=== PATIENT | male | born 1990 | race Caucasian/White ===

== ENCOUNTER 2018-02-19 09:04 | Inpatient (IN) | payer OTHER ==
[2018-02-19] MEDS ORDERED: SODIUM CHLORIDE 0.9% 1,000 ML IV ONE (09:09)
--- NOTE | 2018-02-19 09:18 | ED ---
General Adult HPI - General Stated complaint: altered Time Seen by Provider: 02/19/18 09:04 Source: RN notes reviewed - History of Present Illness Initial comments: This is a 27-year-old male who presents emergency Department with a past medical history of heroin use. Patient's girlfriend states he was acting bizarre and not making any sense at home so EMS was called. According to the girlfriend the patient last used heroin yesterday morning girlfriend states she does not believe he has done any other drugs that it was a bottle of Mucinex and Tylenol neck the patient when she got there and she states that the Tylenol bottle was nearly full but she did not check the Mucinex. Patient is unable to give any history since he's just babbling and not making any sense and is not following basic commands. Patient is alert and moving all 4 extremities but he is not oriented at all. Patient is combative. - Related Data Home Medications Medication Instructions Recorded Confirmed No Known Home Medications 02/19/18 02/19/18 Allergies Allergy/AdvReac Type Severity Reaction Status Date / Time No Known Allergies Allergy Verified 02/19/18 09:36 Review of Systems ROS Statement: Those systems with pertinent positive or pertinent negative responses have been documented in the HPI. ROS Other: All systems not noted in ROS Statement are negative. General Exam - General Exam Comments Initial Comments: GENERAL: Patient is well-developed and well-nourished. Patient is nontoxic and well- hydrated and is in mild distress. ENT: Neck is soft and supple. No significant lymphadenopathy is noted. Oropharynx is clear. Moist mucous membranes. Neck has full range of motion without eliciting any pain. EYES: The sclera were anicteric and conjunctiva were pink and moist. Extraocular movements were intact and pupils were equal round and reactive to light. Pupils were dilated to about 6 mm. Eyelids were unremarkable. PULMONARY: Unlabored respirations. Good breath sounds bilaterally. No audible rales rhonchi or wheezing was noted. CARDIOVASCULAR: There is a regular rate and rhythm without any murmurs gallops or rubs. ABDOMEN: Soft and nontender with normal bowel sounds. No palpable organomegaly was noted. There is no palpable pulsatile mass. SKIN: Skin is clear with no lesions or rashes and otherwise unremarkable. NEUROLOGIC: Patient is awake but not oriented at all. Cranial nerves II through XII are grossly intact. Patient is moving all 4 extremities fully sensation cannot be tested. Unable to assess speech secondary to patient just babbling and not making any sense not even always using words just making sounds. MUSCULOSKELETAL: Normal extremities with adequate strength and full range of motion. No lower extremity swelling or edema. No calf tenderness. LYMPHATICS: No significant lymphadenopathy is noted PSYCHIATRIC: Unable to assess Course Vital Signs 02/19/18 02/19/18 02/19/18 11:15 12:09 12:13 Pulse Rate 108 H 113 H 125 H Respiratory 24 26 H 24 Rate Blood Pressure 130/90 127/86 O2 Sat by Pulse 98 99 Oximetry 02/19/18 02/19/18 02/19/18 12:25 12:45 13:22 Pulse Rate 120 H 108 H 116 H Respiratory 24 24 24 Rate Blood Pressure 120/59 115/76 O2 Sat by Pulse 100 99 99 Oximetry Procedures - Procedural Sedation Procedural Sedation Start Time: 12:00 Procedural Sedation Stop Time: 12:25 Indications: diagnostic imaging procedure ASA Class: I Preparation: cardiac exercise physiologist applied, pulse oximeter, supplemental O2 applied IV Etomidate Dose (mgs): 15 Patient Tolerated Procedure: well - Restraint - Face to Face Restraint Occurrence 1 Patient's Immediate Situation: Endangers self safety, Endangers others' safety, Endangers staff safety Patient's Reaction to the Intervention: Uncooperative, Belligerent, Bizarre, Combative, Resistive to care Patient's Medical & Behavioral Condition: Awake, Agitated Need to Continue or Terminate Restraint or Seclusion: Continue Face to Face Eval of Restraint Date: 02/19/18 Face to Face Eval of Restraint Time: 09:30 Medical Decision Making - Medical Decision Making Conscious sedation needed to be used 2 be able to get a CAT scan on the patient. Etomidate was used. The patient tolerated the procedure well respiratory syndrome as well as nursing. Hours after the patient had been here the girlfriend went home and found a bottle of empty Flexeril. Unknown how many unknown dose and unknown when it was filled I spoke with Dr. Wilson he agreed to admit the patient admitted the patient I sent the patient to the ICU I consulted Dr. Johnson EKG showed a sinus tachycardia at 103 bpm NM interval is 130 QRS is 88 QT interval is 334 QTC is 437. Patient's EKG shows no ST segment elevation or depression or T wave abnormalities are noted. With that sharp at 14 - Lab Data Result diagrams: 02/20/18 04:37 02/20/18 04:37 Lab Results 02/19/18 02/19/18 02/19/18 Range/Units 09:22 09:22 09:22 WBC 6.5 (3.8-10.6) k/uL RBC 4.80 (4.30-5.90) m/uL Hgb 15.4 (13.0-17.5) gm/dL Hct 45.2 (39.0-53.0) % MCV 94.2 (80.0-100.0) fL MCH 32.1 (25.0-35.0) pg MCHC 34.1 (31.0-37.0) g/dL RDW 13.1 (11.5-15.5) % Plt Count 243 (150-450) k/uL Neutrophils % 50 % Lymphocytes % 39 % Monocytes % 6 % Eosinophils % 1 % Basophils % 1 % Neutrophils # 3.2 (1.3-7.7) k/uL Lymphocytes # 2.5 (1.0-4.8) k/uL Monocytes # 0.4 (0-1.0) k/uL Eosinophils # 0.1 (0-0.7) k/uL Basophils # 0.0 (0-0.2) k/uL PT (9.0-12.0) sec INR (<1.2) APTT (22.0-30.0) sec Sodium 144 (137-145) mmol/L Potassium 5.0 (3.5-5.1) mmol/L Chloride 110 H (98-107) mmol/L Carbon Dioxide 24 (22-30) mmol/L Anion Gap 10 mmol/L BUN 12 (9-20) mg/dL Creatinine 0.69 (0.66-1.25) mg/dL Est GFR (CKD-EPI)AfAm >90 (>60 ml/min/1.73 sqM) Est GFR (CKD-EPI)NonAf >90 (>60 ml/min/1.73 sqM) Glucose 101 H (74-99) mg/dL Calcium 10.2 (8.4-10.2) mg/dL Total Bilirubin 0.5 (0.2-1.3) mg/dL AST 122 H (17-59) U/L ALT 525 H (21-72) U/L Alkaline Phosphatase 166 H (38-126) U/L Total Creatine Kinase 58 (55-170) U/L CK-MB (CK-2) 0.6 (0.0-2.4) ng/mL CK-MB (CK-2) Rel Index 1.0 Troponin I <0.012 (0.000-0.034) ng/mL Total Protein 7.2 (6.3-8.2) g/dL Albumin 4.0 (3.5-5.0) g/dL Urine Color Urine Appearance (Clear) Urine pH (5.0-8.0) Ur Specific [place] (1.001-1.035) Urine Protein (Negative) Urine Glucose (UA) (Negative) Urine Ketones (Negative) Urine Blood (Negative) Urine Nitrite (Negative) Urine Bilirubin (Negative) Urine Urobilinogen (<2.0) mg/dL Ur Leukocyte Esterase (Negative) Urine RBC (0-5) /hpf Urine WBC (0-5) /hpf Ur Squamous Epith Cells (0-4) /hpf Urine Opiates Screen (NotDetected) Ur Oxycodone Screen (NotDetected) Urine Methadone Screen (NotDetected) Ur Propoxyphene Screen (NotDetected) Ur Barbiturates Screen (NotDetected) U Tricyclic Antidepress (NotDetected) Ur Phencyclidine Scrn (NotDetected) Ur Amphetamines Screen (NotDetected) U Methamphetamines Scrn (NotDetected) U Benzodiazepines Scrn (NotDetected) Urine Cocaine Screen (NotDetected) U Marijuana (THC) Screen (NotDetected) 02/19/18 02/19/18 Range/Units 09:22 10:00 WBC (3.8-10.6) k/uL RBC (4.30-5.90) m/uL Hgb (13.0-17.5) gm/dL Hct (39.0-53.0) % MCV (80.0-100.0) fL MCH (25.0-35.0) pg MCHC (31.0-37.0) g/dL RDW (11.5-15.5) % Plt Count (150-450) k/uL Neutrophils % % Lymphocytes % % Monocytes % % Eosinophils % % Basophils % % Neutrophils # (1.3-7.7) k/uL Lymphocytes # (1.0-4.8) k/uL Monocytes # (0-1.0) k/uL Eosinophils # (0-0.7) k/uL Basophils # (0-0.2) k/uL PT 9.7 (9.0-12.0) sec INR 1.0 (<1.2) APTT 26.5 (22.0-30.0) sec Sodium (137-145) mmol/L Potassium (3.5-5.1) mmol/L Chloride (98-107) mmol/L Carbon Dioxide (22-30) mmol/L Anion Gap mmol/L BUN (9-20) mg/dL Creatinine (0.66-1.25) mg/dL Est GFR (CKD-EPI)AfAm (>60 ml/min/1.73 sqM) Est GFR (CKD-EPI)NonAf (>60 ml/min/1.73 sqM) Glucose (74-99) mg/dL Calcium (8.4-10.2) mg/dL Total Bilirubin (0.2-1.3) mg/dL AST (17-59) U/L ALT (21-72) U/L Alkaline Phosphatase (38-126) U/L Total Creatine Kinase (55-170) U/L CK-MB (CK-2) (0.0-2.4) ng/mL CK-MB (CK-2) Rel Index Troponin I (0.000-0.034) ng/mL Total Protein (6.3-8.2) g/dL Albumin (3.5-5.0) g/dL Urine Color Light Yellow Urine Appearance Clear (Clear) Urine pH 7.0 (5.0-8.0) Ur Specific [place] 1.004 (1.001-1.035) Urine Protein Negative (Negative) Urine Glucose (UA) Negative (Negative) Urine Ketones Negative (Negative) Urine Blood Small H (Negative) Urine Nitrite Negative (Negative) Urine Bilirubin Negative (Negative) Urine Urobilinogen <2.0 (<2.0) mg/dL Ur Leukocyte Esterase Negative (Negative) Urine RBC 3 (0-5) /hpf Urine WBC 1 (0-5) /hpf Ur Squamous Epith Cells <1 (0-4) /hpf Urine Opiates Screen Not Detected (NotDetected) Ur Oxycodone Screen Not Detected (NotDetected) Urine Methadone Screen Not Detected (NotDetected) Ur Propoxyphene Screen Not Detected (NotDetected) Ur Barbiturates Screen Not Detected (NotDetected) U Tricyclic Antidepress Not Detected (NotDetected) Ur Phencyclidine Scrn Not Detected (NotDetected) Ur Amphetamines Screen Not Detected (NotDetected) U Methamphetamines Scrn Not Detected (NotDetected) U Benzodiazepines Scrn Detected H (NotDetected) Urine Cocaine Screen Not Detected (NotDetected) U Marijuana (THC) Screen Detected H (NotDetected) Disposition Clinical Impression: Altered mental status, Drug overdose Disposition: ADMITTED IP TO THIS HOSP
[2018-02-19] MEDS ORDERED: LORazepam 2 MG/ML INJ IV STA ×2 (09:20→13:09)
[2018-02-19 09:52] LABS: ALT 525 U/L (21-72); AST 122 U/L (17-59); Alkaline Phosphatase 166 U/L (38-126); Anion Gap 10 mmol/L; Blood Urea Nitrogen 12 mg/dL (9-20); Calcium 10.2 mg/dL (8.4-10.2); Carbon Dioxide 24 mmol/L (22-30); Chloride 110 mmol/L (98-107); Glucose 101 mg/dL (74-99); Sodium 144 mmol/L (137-145); Total Bilirubin 0.5 mg/dL (0.2-1.3); Total Protein 7.2 g/dL (6.3-8.2)
[2018-02-19 09:53] LABS: Basophils % (A) 1 %; Eosinophils # (A) 0.1 k/uL (0-0.7); Eosinophils % (A) 1 %; HCT 45.2 % (39.0-53.0); HGB 15.4 gm/dL (13.0-17.5); Lymphocytes # (A) 2.5 k/uL (1.0-4.8); Lymphocytes % (A) 39 %; MCH 32.1 pg (25.0-35.0); MCHC 34.1 g/dL (31.0-37.0); MCV 94.2 fL (80.0-100.0); Mean Platelet Volume 7.3; Monocytes # (A) 0.4 k/uL (0-1.0); Monocytes % (A) 6 %; Neutrophils # (A) 3.2 k/uL (1.3-7.7); Neutrophils % (A) 50 %; Platelet Count 243 k/uL (150-450); RDW 13.1 % (11.5-15.5); WBC 6.5 k/uL (3.8-10.6)
[2018-02-19 09:57] LABS: Partial Thromboplastin Time 26.5 sec (22.0-30.0); Prothrombin Time 9.7 sec (9.0-12.0)
[2018-02-19 10:15] LABS: Creatine Kinase 58 U/L (55-170)
[2018-02-19 10:26] LABS: Appearance,Urine Clear (Clear); Bilirubin,Urine Negative (Negative); Blood,Urine Small (Negative); Color,Urine Light Yellow; Glucose,Urine (UA) Negative (Negative); Ketones,Urine Negative (Negative); Leukocyte Esterase,Urine Negative (Negative); Nitrite,Urine Negative (Negative); Protein,Urine Negative (Negative); RBC,Urine 3 /hpf (0-5); Specific Gravity,Urine 1.004 (1.001-1.035); Squamous Epithelial Cell,Urine <1 /hpf (0-4); Urobilinogen,Urine <2.0 mg/dL (<2.0); WBC,Urine 1 /hpf (0-5)
[2018-02-19 10:29] LABS: Creatine Kinase MB 0.6 ng/mL (0.0-2.4); Troponin I <0.012 ng/mL (0.000-0.034)
[2018-02-19 10:41] LABS: Amphetamine Screen,Urine Not Detected (NotDetected); Barbiturate Screen,Urine Not Detected (NotDetected); Benzodiazepines Screen,Urine Detected (NotDetected); Cocaine Screen,Urine Not Detected (NotDetected); Methadone Screen, Urine Not Detected (NotDetected); Opiate Screen,Urine Not Detected (NotDetected); Oxycodone Screen, Urine Not Detected (NotDetected); Phencyclidine Screen,Urine Not Detected (NotDetected); Tricyclic Antidepressant,Urine Not Detected (NotDetected); Urn Cannabinoid Scrn Detected (NotDetected)
[2018-02-19] MEDS: ETOMIDATE 2 MG/ML 10 ML VIAL IVP STA ×2 (12:12→12:13)
--- NOTE | 2018-02-19 12:35 | CT ---
EXAMINATION TYPE: CT brain wo con DATE OF EXAM: 02/19/2018 COMPARISON: None HISTORY: Altered mental status CT DLP: 1185.[address] of the brain was performed. The ventricles, basal cisterns and sulci overlying the cerebral convexities demonstrate a normal appe arance. There is no evidence for intracranial hemorrhage or sulcal effacement. No mass effects are seen. Osseous calvarium is intact. Mucous retention cyst seen of the maxillary sinuses. If symptoms persist consider MRI as clinically warranted. IMPRESSION: 1. No acute intracranial process is seen at this time.
--- NOTE | 2018-02-19 12:47 | XR ---
EXAMINATION TYPE: XR chest 1V portable DATE OF EXAM: 02/19/2018 COMPARISON: NONE HISTORY: Chest pain TECHNIQUE: Single frontal view of the chest is obtained. FINDINGS: There is no focal air space opacity, pleural effusion, or pneumothorax seen. The cardiac silhouette size is within normal limits. The osseous structures are intact. IMPRESSION: 1. No acute process.
[2018-02-19] MEDS ORDERED: NALOXONE 0.4 MG/ML 1 ML VIAL IV PRN (13:14)
[2018-02-19] MEDS ORDERED: LORazepam 2 MG/ML INJ IV PRN ×3 (13:16→19:23)
[2018-02-19 13:43] LABS: Acetaminophen <10.0 ug/mL; Alcohol <10 mg/dL; Magnesium 1.9 mg/dL (1.6-2.3); Salicylate <1.0 mg/dL
[2018-02-19 14:37] LABS: Glucose,Whole Blood 93 mg/dL (75-99)
--- NOTE | 2018-02-19 16:40 | P.CNPUL ---
History of Present Illness Consult date: 02/19/18 Reason for consult: other Chief complaint: Drug overdose History of present illness: Pulmonary/critical care consult dated 02/19/2018 This is a 27-year-old male who presented to the emergency department with a history of drug use. Apparently according to his girlfriend, he was acting bizarre and not making any sense at home. EMS was called and he was brought into the emergency department. The patient was very disoriented and confused in the emergency department and very agitated. Apparently, according to the girlfriend, the patient last used heroin yesterday. The drug screen was negative for opiates. There was apparently a bottle of Mucinex and Tylenol as well as a bottle of Flexeril next to the patient. It's not clear if he took any of these medications and how much was taken. The drug screen was positive for benzodiazepines and also positive for THC. A CAT scan of the brain was negative and a chest x-ray was normal. The patient has Ativan ordered 1 mg every 6 hours. I increased the Ativan to 1 mg every 2 hours IV and Haldol 4-8 mg IV every 2 hours. The patient continues to be very combative. He apparently is not on any home medications on a regular basis. He apparently also has no ALLERGIES. Apparently also, no history of any significant medical problems. Again, the history is very sketchy. Review of Systems ROS unobtainable: due to mental status (Patient can give no additional history at this time.) Past Medical History Past Medical History: Unable to Obtain History of Any Multi-Drug Resistant Organisms: None Reported Past Surgical History: Unable to Obtain Past Psychological History: Unable to Obtain Smoking Status: Unknown if ever smoked Past Drug Use History: Heroin, IV Drug Use Medications and Allergies Home Medications Medication Instructions Recorded Confirmed Type No Known Home Medications 02/19/18 02/19/18 History Allergies Allergy/AdvReac Type Severity Reaction Status Date / Time No Known Allergies Allergy Verified 02/19/18 09:36 Physical Exam Osteopathic Statement: *. No significant issues noted on an osteopathic structural exam other than those noted in the History and Physical/Consult. Vitals: Vital Signs Temp Pulse Pulse Resp BP Pulse Ox 02/19/18 16:00 112 H 118 H 32 H 126/69 97 02/19/18 15:50 19 126/69 97 02/19/18 15:40 100 13 126/69 97 02/19/18 15:30 105 H 12 126/69 98 02/19/18 15:20 124 H 24 126/69 96 02/19/18 15:10 115 H 20 126/69 97 02/19/18 15:00 120 H 36 H 126/69 94 L 02/19/18 14:50 120 H 23 97 02/19/18 14:40 121 H 20 97 02/19/18 14:31 98.0 F 124 H 31 H 97 02/19/18 13:22 116 H 24 115/76 99 02/19/18 12:45 108 H 24 120/59 99 02/19/18 12:25 120 H 24 100 02/19/18 12:13 125 H 24 99 02/19/18 12:09 113 H 26 H 127/86 02/19/18 11:15 108 H 24 130/90 98 Intake and Output 02/19/18 02/19/18 02/19/18 06:59 14:59 22:59 Intake Total 225 Output Total 600 Balance -375 Intake: Intake, IV Titration 225 Amount Sodium Chloride 0.9% 1, 225 000 ml @ 999 mls/hr IV . Q1H1M ONE Rx#:[id number] Output: Urine 600 Other: Voiding Method Indwelling Catheter Weight 72.575 kg No acute distress, confused and agitated, with significant neuromuscular hyperactivity. HEENT examination is grossly unremarkable. Mucous membranes are moist. No oral lesions. Neck supple. Full range of motion. No adenopathy thyromegaly or neck vein distention. Cardiovascular examination reveals regular rhythm rate. S1-S2 normal. No S3 or S4. No discernible murmur noted. Heart rate is 100. Lungs reveal clear breath sounds. Breath sounds are equal bilaterally. No adventitious lung sounds including wheezes rhonchi or crackles. Abdomen soft and bowel sounds are heard. No masses or tenderness. Extremities are intact. No cyanosis clubbing or edema. Skin is without rash or lesion. Neurologic examination cannot be adequately assessed although he does move all 4 extremities. Results - Laboratory Findings CBC and BMP: 02/19/18 09:22 02/19/18 09:22 PT/INR, D-dimer PT 9.7 sec (9.0-12.0) 02/19/18 09:22 INR 1.0 (<1.2) 02/19/18 09:22 Abnormal lab findings: Abnormal Labs 02/19/18 02/19/18 09:22 10:00 Chloride 110 H Glucose 101 H AST 122 H ALT 525 H Alkaline Phosphatase 166 H Urine Blood Small H U Benzodiazepines Scrn Detected H U Marijuana (THC) Screen Detected H - Diagnostic Findings Chest x-ray: report reviewed, image reviewed (Chest x-ray, labs and medications are reviewed.) Assessment and Plan Assessment: Assessment Suspected overdose, although what the patient took is unclear. Apparently it may include Mucinex and/or Flexeril. Drug screen positive for benzodiazepines and marijuana History of heroin use. Normal chest x-ray and brain CT Plan: Plan dated 02/19/2018 The patient's Ativan will be increased to 1 mg IV every 2 hours when necessary and Haldol will be added. 4-8 mg IV every 2 hours. The patient is not receiving any supplemental oxygen. The IV was saline at 125 mL an hour. Labs x -rays and medications are all reviewed. CBC is entirely normal. PT INR PTT are normal. Sodium 144, potassium 5 chloride is 110 CO2 24 anion gap normal, BUN 12 and creatinine 0.69. AST is elevated at 122 and ALTs elevated at 525. Alkaline phosphatase is 166. Urine is essentially negative. In addition to the Ativan and Haldol, the patient has Narcan ordered. We will continue to follow and provide additional input weren't needed. Prognosis is guarded. Time with Patient: Greater than 30
[2018-02-19] MEDS: HALOPERIDOL LACTATE 5 MG/ML 1 ML VIAL IVP PRN ×4 (17:25→23:53)
[2018-02-19] MEDS ORDERED: HALOPERIDOL LACTATE 5 MG/ML 1 ML VIAL IM PRN (19:22)
[2018-02-19] MEDS ORDERED: HALOPERIDOL LACTATE 5 MG/ML 1 ML VIAL IVP PRN (21:15)
[2018-02-19] MEDS: LORazepam 2 MG/ML INJ IV PRN ×3 (21:23→23:29)
[2018-02-19] MEDS: HEPARIN SODIUM,PORCINE 5,000 UNIT/ML 1 ML VIAL SQ SCH (21:53)
--- NOTE | 2018-02-19 22:32 | HP ---
HISTORY AND PHYSICAL DATE OF SERVICE: 02/19/2018 CHIEF COMPLAINT: Change in mental status. HISTORY OF PRESENT ILLNESS: This 27-year-old gentleman with a past medical history of multiple medical problems, including history of substance abuse apparently, was taken to [facility] from home because somebody called EMS. According to the girlfriend, the patient last used heroin yesterday morning and is not on any drugs, according to her; and there was a bottle of Mucinex and Tylenol near the patient and the patient was found to be barely responsive. Patient was taken to [facility] and admitted for further evaluation and treatment. The patient was initially alert, moving all 4 limbs, but the patient needs to be sedated and patient's safety at this time. The patient is being closely in ICU at this time. Dr. Cameron has seen the patient. AST and ALT were very elevated, indicating hepatitis, and THC and benzodiazepines were positive. Skin alcohol was negative. There is no history of any trauma. No history of any fever, rigor, chills. A detailed history could not be taken from the patient because the patient is sedated at this time. Most of the history was taken from my discussion with staff as well as review of the chart and discussion with the ER physician. PAST MEDICAL HISTORY: History of reported substance abuse; history of IV heroin and IV drug abuse. MEDICATIONS PRIOR TO ADMISSION: None. ALLERGIES: NONE. Family history, social history, review of systems could not be taken at length because of the patient's mental status. PHYSICAL EXAMINATION: Patient is sedated. Pulse is 109, blood pressure 123/79, respiration 31, temperature 98.7, pulse ox 97% on room air. HEENT: Conjunctivae normal. Oral mucosa moist. NECK: No jugular venous distention. No carotid bruit. No lymph node enlargement. CARDIOVASCULAR SYSTEM: S1, S2 muffled. RESPIRATORY SYSTEM: Breath sounds diminished at the bases. A few scattered rhonchi and crackles. ABDOMEN: Soft, non-tender. Mass not palpable. LEGS: No edema. No swelling. NERVOUS SYSTEM: Higher functions as mentioned earlier. Moves all 4 limbs. No focal motor or sensory deficit. LYMPHATICS: No lymph node palpable in neck, axillae or groin. SKIN: No ulcer, rash, bleeding. LABS: CBC within normal limits. Sodium 140, potassium 5, glucose 101, AST is 122, ALT is 525, alkaline phosphatase 166. UA noted. Drug screen noted. Salicylates less than 10. Acetaminophen less than 10. CT of the brain showed no acute intracranial process. Chest x-ray showed no acute process. ASSESSMENT: 1. Change in mental status, possibly drug-induced metabolic encephalopathy. 2. History IV drug abuse. 3. Increased chloride. 4. Increase random blood sugar. 5. Increased AST, ALT, possibly hepatitis. 6. Positive tetrahydrocannabinol in the drug screen. RECOMMENDATIONS AND DISCUSSION: In this 27-year-old gentleman who presented with multiple complex medical issues , we will monitor the patient closely, continue the current management, continue symptomatic treatment, monitor in ICU. Recommend Haldol and p.r.n. Ativan. Psych consultation. Otherwise DVT prophylaxis, Protonix. Ensure oxygenation. Overall prognosis guarded because of multiple complex medical issues. Further recommendations to follow. We will obtain the cultures as well. MMODL / IJN: [id number] / RAFAEL
[2018-02-20] MEDS: LORazepam 2 MG/ML INJ IV PRN ×13 (00:29→19:57)
[2018-02-20] MEDS: HALOPERIDOL LACTATE 5 MG/ML 1 ML VIAL IVP PRN ×7 (01:58→20:43)
[2018-02-20 05:20] LABS: ALT 404 U/L (21-72); AST 90 U/L (17-59); Albumin 3.9 g/dL (3.5-5.0); Alkaline Phosphatase 178 U/L (38-126); Anion Gap 10 mmol/L; Blood Urea Nitrogen 11 mg/dL (9-20); Carbon Dioxide 23 mmol/L (22-30); Chloride 108 mmol/L (98-107); Glucose 83 mg/dL (74-99); Potassium 4.2 mmol/L (3.5-5.1); Sodium 141 mmol/L (137-145); Total Bilirubin 1.1 mg/dL (0.2-1.3)
[2018-02-20 05:24] LABS: Basophils # (A) 0.1 k/uL (0-0.2); Basophils % (A) 0 %; Eosinophils % (A) 0 %; HCT 47.7 % (39.0-53.0); HGB 15.4 gm/dL (13.0-17.5); Lymphocytes # (A) 2.4 k/uL (1.0-4.8); Lymphocytes % (A) 13 %; MCH 30.6 pg (25.0-35.0); MCHC 32.2 g/dL (31.0-37.0); MCV 94.8 fL (80.0-100.0); Mean Platelet Volume 7.1; Monocytes # (A) 0.8 k/uL (0-1.0); Monocytes % (A) 5 %; Neutrophils # (A) 14.5 k/uL (1.3-7.7); Neutrophils % (A) 80 %; Platelet Count 280 k/uL (150-450); RBC 5.03 m/uL (4.30-5.90); RDW 13.1 % (11.5-15.5)
[2018-02-20 05:52] LABS: Magnesium 1.7 mg/dL (1.6-2.3); Phosphorus 3.1 mg/dL (2.5-4.5)
[2018-02-20] MEDS ORDERED: Magnesium Replacement Protocol 1 EACH MISC MISCELLANE PRN (06:26)
[2018-02-20] MEDS: MAGNESIUM SULFATE-D5W PMX 1 GM in DEXTROSE/WATER 1 100ML.BAG IVPB SCH ×2 (06:33→08:35)
[2018-02-20 07:21] LABS: Hepatitis A Antibody IgM Non-Reactive (Non-Reactive); Hepatitis B Core IgM Non-Reactive (Non-Reactive)
[2018-02-20] MEDS ORDERED: PANTOPRAZOLE 40 MG TABLET PO SCH (07:30)
--- NOTE | 2018-02-20 08:19 | P.PN ---
Subjective Progress Note Date: 02/20/18 Principal diagnosis: Drug overdose Pulmonary/critical care progress note dated 02/20/2018 This is a 27-year-old male with a suspected overdose. Unclear as to what he took. Apparently there was empty bottles of both Mucinex and cyclobenzaprine To the patient. He apparently had a positive drug screen for benzodiazepines and marijuana and has a history of heroin use. The patient was admitted to the emergency room with profound agitation confusion disorientation and combativeness. He was transferred to the ICU for further monitoring. The patient remains on IV Ativan and Haldol which seems to have controlled some of his neuromuscular hyperactivity. The patient has stable hemodynamics and respiratory status. The patient is not receiving any supplemental oxygen. The patient's on a saline IV at 125 mL an hour. His current lab data includes a white count of 18,000 hemoglobin 15.4 hematocrit 47.7 and a platelet count is 280,000. Sodium potassium are both normal. Chlorides 108, CO2 is 23, anion gap is 10 and BUN and creatinine were 11 and 0.73 respectively. The rest of his labs look okay. Objective - Vital Signs Vital signs: Vital Signs Temp 98.2 F 02/20/18 04:00 Pulse 122 H 02/20/18 07:00 Resp 24 02/20/18 07:00 BP 123/77 02/20/18 07:00 Pulse Ox 96 02/20/18 07:00 Intake & Output 02/19/18 02/20/18 02/20/18 18:59 06:59 18:59 Intake Total 475 1500 225 Output Total 805 1380 60 Balance -330 120 165 Weight 55 kg 55.5 kg Intake: IV 1000 125 normal Saline 0.9 1000 125 Intake, IV Titration 475 500 100 Amount Magnesium Sulfate-D5w Pmx 100 1 gm In Dextrose/Water 1 100ml.bag @ 100 mls/hr IVPB Q1H [facility] Rx#: [id number] Sodium Chloride 0.9% 1, 475 500 000 ml @ 999 mls/hr IV . Q1H1M [facility] Rx#:[id number] Output: Urine 805 1380 60 Other: Voiding Method Indwelling Catheter Indwelling Catheter - Exam Confused, still very agitated and combative. Not oriented. HEENT examination is grossly unremarkable. Mucous membranes are moist. No oral lesions. Neck supple. Full range of motion. No adenopathy thyromegaly or neck vein distention. Cardiovascular examination reveals regular rhythm rate. S1-S2 normal. No S3 or S4. No discernible murmur noted. Heart rate is 107 bpm Lungs reveal clear breath sounds. Breath sounds are equal bilaterally. No adventitious lung sounds including wheezes rhonchi or crackles. Abdomen soft bowel sounds are heard. No masses or tenderness. Extremities are intact. No cyanosis clubbing or edema. Skin is without rash or lesion. Neurologic examination is difficult to assess. He does move all 4 extremities. - Labs CBC & Chem 7: 02/20/18 04:37 02/20/18 04:37 Labs: Abnormal Lab Results - Last 24 Hours (Table) 02/19/18 02/19/18 02/19/18 Range/Units 09:22 10:00 22:07 WBC (3.8-10.6) k/uL Neutrophils # (1.3-7.7) k/uL Chloride 110 H (98-107) mmol/L Glucose 101 H (74-99) mg/dL AST 122 H (17-59) U/L ALT 525 H (21-72) U/L Alkaline Phosphatase 166 H (38-126) U/L Urine Blood Small H (Negative) U Benzodiazepines Scrn Detected H (NotDetected) U Marijuana (THC) Screen Detected H (NotDetected) Hep C IgG Ab Reactive H (Non-Reactive) 02/20/18 02/20/18 Range/Units 04:37 04:37 WBC 18.0 H (3.8-10.6) k/uL Neutrophils # 14.5 H (1.3-7.7) k/uL Chloride 108 H (98-107) mmol/L Glucose (74-99) mg/dL AST 90 H (17-59) U/L ALT 404 H (21-72) U/L Alkaline Phosphatase 178 H (38-126) U/L Urine Blood (Negative) U Benzodiazepines Scrn (NotDetected) U Marijuana (THC) Screen (NotDetected) Hep C IgG Ab (Non-Reactive) Microbiology - Last 24 Hours (Table) 02/19/18 10:00 Urine Culture - Preliminary Urine,Catheterized Assessment and Plan Assessment: Assessment Suspected overdose, although what the patient took is unclear. Apparently it may include Mucinex and/or Flexeril. Drug screen positive for benzodiazepines and marijuana History of heroin use. Normal chest x-ray and brain CT Plan: Plan dated 02/19/2018 The patient's Ativan will be increased to 1 mg IV every 2 hours when necessary and Haldol will be added. 4-8 mg IV every 2 hours. The patient is not receiving any supplemental oxygen. The IV was saline at 125 mL an hour. Labs x -rays and medications are all reviewed. CBC is entirely normal. PT INR PTT are normal. Sodium 144, potassium 5 chloride is 110 CO2 24 anion gap normal, BUN 12 and creatinine 0.69. AST is elevated at 122 and ALTs elevated at 525. Alkaline phosphatase is 166. Urine is essentially negative. In addition to the Ativan and Haldol, the patient has Narcan ordered. We will continue to follow and provide additional input weren't needed. Prognosis is guarded. Plan dated 02/20/2018 The patient will remain on Ativan and Haldol. For some reason the Haldol dose was not been given properly. I recommended using Haldol 48 mg IV every 1-2 hours for agitation and confusion. The patient will continue on hourly Ativan. He'll continue on saline IV 1 25 mL an hour. Additional recommendations and suggestions are forthcoming. Prognosis is guarded. We'll continue to monitor closely. His chest x-ray was negative and brain CT was negative for anything acute. Additional recommendations and suggestions are forthcoming. Critical care time 32 minutes. Time with Patient: Greater than 30
[2018-02-20] MEDS: HEPARIN SODIUM,PORCINE 5,000 UNIT/ML 1 ML VIAL SQ SCH ×2 (08:36→20:43)
--- NOTE | 2018-02-20 11:45 | P.CN ---
Psychiatric Consult - . Consult date: 02/20/18 Consult:: Mental health services?? 02/20/18 11:10 Assessment and Plan (1) Altered mental status Narrative/Plan: This is a 27-year-old male who presented to the emergency department with a history of drug use. Apparently according to his girlfriend, he was acting bizarre and not making any sense at home. EMS was called and he was brought into the emergency department. The patient was very disoriented and confused in the emergency department and very agitated. Apparently, according to the girlfriend, the patient last used heroin yesterday. The drug screen was negative for opiates. There was apparently a bottle of Mucinex and Tylenol as well as a bottle of Flexeril next to the patient. It's not clear if he took any of these medications and how much was taken. The drug screen was positive for benzodiazepines and also positive for THC. A CAT scan of the brain was negative and a chest x-ray was normal. The patient has Ativan ordered 1 mg every 6 hours. I increased the Ativan to 1 mg every 2 hours IV and Haldol 4-8 mg IV every 2 hours. The patient continues to be very combative. He apparently is not on any home medications on a regular basis. He apparently also has no ALLERGIES. Apparently also, no history of any significant medical problems. Again, the history is very sketchy. Talked with nursing staff and made recommendations as outlined below. Past Medical History Past Medical History: Unable to Obtain History of Any Multi-Drug Resistant Organisms: None Reported Past Surgical History: Unable to Obtain Past Psychological History: Unable to Obtain Smoking Status: Unknown if ever smoked Past Drug Use History: Heroin, IV Drug Use Abnormal Lab Results - Last 24 Hours (Table) 02/19/18 02/19/18 02/19/18 Range/Units 09:22 10:00 22:07 WBC (3.8-10.6) k/uL Neutrophils # (1.3-7.7) k/uL Chloride 110 H (98-107) mmol/L Glucose 101 H (74-99) mg/dL AST 122 H (17-59) U/L ALT 525 H (21-72) U/L Alkaline Phosphatase 166 H (38-126) U/L Urine Blood Small H (Negative) U Benzodiazepines Scrn Detected H (NotDetected) U Marijuana (THC) Screen Detected H (NotDetected) Hep C IgG Ab Reactive H (Non-Reactive) 02/20/18 02/20/18 Range/Units 04:37 04:37 WBC 18.0 H (3.8-10.6) k/uL Neutrophils # 14.5 H (1.3-7.7) k/uL Chloride 108 H (98-107) mmol/L Glucose (74-99) mg/dL AST 90 H (17-59) U/L ALT 404 H (21-72) U/L Alkaline Phosphatase 178 H (38-126) U/L Urine Blood (Negative) U Benzodiazepines Scrn (NotDetected) U Marijuana (THC) Screen (NotDetected) Hep C IgG Ab (Non-Reactive) Mental Status Examination - General Appearance: [disheveled, bizarre, appears stated age, Speech/Language: [ slow, rapid, slurred, rambled, mumbling, loud] Attitude/Behavior: [ guarded, irritable, withdrawn, indifferent, ] Mood: [depressed, anxious, elated, irritable, angry, fearful, hopelessness Affect: [ labile, blunted constricted, Orientation: [time, person only, place situation] Thought Content: delusions Risk Factors: [???suicidal (ideations, plan), and/or Homicidal (ideations, plan) , other] Perception: [ hallucinations (auditory, visual] Thought Processes: [concrete, circumstantial, tangential Concentration/Attention Span: [ impaired] [Per observation and interview with the patient] Recent Memory: [impaired] [0, 1, 2 or 3 out of 3 in 3 minutes] Remote Memory: [ impaired] [past events, as related history] Intelligence: [below average] [based on history, based on vocabulary, syntax, grammar, and content] Judgement: poor] [per patient's behavior/history of present illness] Insight: poor] [understanding severity of illness/history of present illness] Psychiatric impression: Hepatitis C positive, marijuana use disorder moderate, acute psychosis and drug withdrawal: Elevated AST ALT and alkaline phosphatase all appeared to be from use of alcohol and/or Hep C Psychiatric recommendations: I will recommend using Thorazine instead of haloperidol for your get better sedation and quality of control the patient: Use of Precedex may be of benefit as well. When using Thorazine usually 100- 200 mg and 100 mg of diphenhydramine. Thank you for the consult Landon Wihte D.O. PhD attending psychiatrist Ranjit Reich Current Visit: Yes Status: Acute Priority: High Code(s): R41.82 - ALTERED MENTAL STATUS, UNSPECIFIED SNOMED Code(s): 724755426 (2) Drug overdose Current Visit: Yes Status: Acute Priority: High Code(s): T50.901A - POISONING BY UNSP DRUG/MEDS/BIOL SUBST, ACCIDENTAL, INIT SNOMED Code(s): 01663976 (3) Psychoses Current Visit: Yes Status: Acute Priority: High Code(s): F29 - UNSP PSYCHOSIS NOT DUE TO A SUBSTANCE OR KNOWN PHYSIOL COND SNOMED Code(s): 51832929 Time with Patient: Less than 30
[2018-02-20 12:58] LABS: Glucose,Whole Blood 80 mg/dL (75-99)
[2018-02-20] MEDS: PANTOPRAZOLE 40 MG/10 ML VIAL IVP SCH (14:28)
[2018-02-21] MEDS: LORazepam 2 MG/ML INJ IV PRN (00:53)
[2018-02-21 06:01] LABS: Basophils % (A) 0 %; Eosinophils # (A) 0.1 k/uL (0-0.7); Eosinophils % (A) 0 %; HCT 42.3 % (39.0-53.0); HGB 14.3 gm/dL (13.0-17.5); Lymphocytes # (A) 2.8 k/uL (1.0-4.8); Lymphocytes % (A) 18 %; MCH 31.7 pg (25.0-35.0); MCHC 33.8 g/dL (31.0-37.0); MCV 93.9 fL (80.0-100.0); Mean Platelet Volume 7.4; Monocytes # (A) 0.9 k/uL (0-1.0); Monocytes % (A) 6 %; Neutrophils % (A) 75 %; Platelet Count 250 k/uL (150-450); RBC 4.51 m/uL (4.30-5.90)
[2018-02-21 06:19] LABS: ALT 255 U/L (21-72); AST 50 U/L (17-59); Albumin 3.2 g/dL (3.5-5.0); Alkaline Phosphatase 149 U/L (38-126); Anion Gap 7 mmol/L; Blood Urea Nitrogen 10 mg/dL (9-20); Calcium 9.4 mg/dL (8.4-10.2); Carbon Dioxide 24 mmol/L (22-30); Chloride 109 mmol/L (98-107); Glucose 79 mg/dL (74-99); Magnesium 1.9 mg/dL (1.6-2.3); Potassium 4.2 mmol/L (3.5-5.1); Sodium 140 mmol/L (137-145); Total Bilirubin 1.2 mg/dL (0.2-1.3); Total Protein 6.1 g/dL (6.3-8.2)
[2018-02-21] MEDS: MAGNESIUM SULFATE-D5W PMX 1 GM in DEXTROSE/WATER 1 100ML.BAG IVPB SCH ×2 (06:34→09:02)
[2018-02-21 08:34] LABS: Glucose,Whole Blood 90 mg/dL (75-99)
[2018-02-21] MEDS: HEPARIN SODIUM,PORCINE 5,000 UNIT/ML 1 ML VIAL SQ SCH ×2 (09:09→21:24)
[2018-02-21] MEDS: PANTOPRAZOLE 40 MG/10 ML VIAL IVP SCH (09:09)
--- NOTE | 2018-02-21 09:52 | P.PN ---
Subjective Progress Note Date: 02/21/18 Principal diagnosis: Drug overdose Patient is seen today in follow-up in the intensive care unit. He is awake and alert in no acute distress. He is maintaining good O2 saturations in the 90s on room air. The 0.9 normal saline and 125 ML's per hour. He does admit to utilizing heroin, methamphetamines, Xanax. There is also bottles and Mucinex and cyclobenzaprine at the scene. This drug screen was positive for benzodiazepines and marijuana. Hepatitis C positive. Blood and urine cultures reveal no growth. White count 16.0. Hemoglobin 14.3. Creatinine 0.67. AST 255, ALT 149. His last dose of Haldol was 20:43 last evening, he did require Ativan 2 mg at 1:00 this morning or restlessness and agitation. He is more cooperative this morning. Objective - Vital Signs Vital signs: Vital Signs Temp 98.7 F 02/21/18 04:00 Pulse 96 02/21/18 07:00 Resp 29 H 02/21/18 07:00 BP 119/70 02/21/18 07:00 Pulse Ox 96 02/20/18 18:00 Intake & Output 02/20/18 02/21/18 02/21/18 18:59 06:59 18:59 Intake Total 1725 1800 Output Total 1150 2290 Balance 575 -490 Weight 55.5 kg 53.7 kg Intake: IV 1625 1500 normal Saline 0.9 1625 1500 Intake, IV Titration 100 Amount Magnesium Sulfate-D5w Pmx 100 1 gm In Dextrose/Water 1 100ml.bag @ 100 mls/hr IVPB Q1H [facility] Rx#: [id number] Oral 300 Output: Urine 1150 2290 Other: Voiding Method Indwelling Catheter Indwelling Catheter - Exam GENERAL EXAM: Alert, active, comfortable in no apparent distress. HEAD: Normocephalic. EYES: Normal reaction of pupils, equal size. NOSE: Clear with pink turbinates. THROAT: No erythema or exudates. NECK: No masses, no JVD. CHEST: No chest wall deformity. LUNGS: Equal air entry with no crackles, wheeze, rhonchi or dullness. CVS: S1 and S2 normal with no audible murmur, regular rhythm. ABDOMEN: No hepatosplenomegaly, normal bowel sounds, no guarding or rigidity. SPINE: No scoliosis or deformity SKIN: No rashes CENTRAL NERVOUS SYSTEM: No focal deficits, tone is normal in all 4 extremities. EXTREMITIES: There is no peripheral edema. No clubbing, no cyanosis. Peripheral pulses are intact. - Labs CBC & Chem 7: 02/21/18 05:06 02/21/18 05:06 Labs: Abnormal Lab Results - Last 24 Hours (Table) 02/21/18 02/21/18 Range/Units 05:06 05:06 WBC 16.0 H (3.8-10.6) k/uL Neutrophils # 12.0 H (1.3-7.7) k/uL Chloride 109 H (98-107) mmol/L ALT 255 H (21-72) U/L Alkaline Phosphatase 149 H (38-126) U/L Total Protein 6.1 L (6.3-8.2) g/dL Albumin 3.2 L (3.5-5.0) g/dL Microbiology - Last 24 Hours (Table) 02/19/18 10:00 Urine Culture - Final Urine,Catheterized 02/19/18 22:07 Blood Culture - Preliminary Blood No Growth after 24 hours Assessment and Plan Assessment: Impression: #1 Drug overdose of uncertain medications. Mucinex and Flexeril bottles were found seen. The patient this morning admits to use of heroin, methamphetamines and Xanax. Drug screen was positive for benzodiazepines and marijuana. Plan: The patient was seen and evaluated by Dr. Cameron. We'll continue with Ativan and Haldol as needed. He is stable to be transferred out of the intensive care unit today to regular medical floor with a sitter 24 7. Psychiatric services have been consulted. We will follow with the patient on as-needed basis. I, the cosigning physician, performed a history & physical examination of the patient. Lungs sounds are clear. Maintaining good O2 saturations in the 90s on room air. I discussed the assessment and plan of care with my nurse practitioner, Rosy Donahue. I attest to the above note as dictated by her.
--- NOTE | 2018-02-21 17:00 | P.PN ---
Subjective Progress Note Date: 02/20/18 Progress Note being dictated for Dr. Wilson. Interval history: This a 27-year-old gentleman admitted in the ICU with change in mental status, possibly drug-induced, metabolic encephalopathy in a patient with history of polysubstance IV drug abuse including heroin, Xanax, methamphetamine, hepatitis C . Drug screen tested positive for THC. Significant agitation/confusion, requiring Haldol and prn Ativan. Mother at bedside, willing to petition patient for inpatient psychiatry unit. Mother states patient has been on methamphetamines and heparin for a year, history of depression, bipolar, states he is a "cutter". Suicide precautions maintained, psychiatry consulted with recommendations pending. Patient still disoriented, attempting to bite staff, speech garbled. LFTs improving. Afebrile, elevated WBC, infectious disease consulted. Maintained on IV fluid hydration, O2 sats in the high 90s on room air. Review of systems unable to obtain as patient confused as mentioned above. Active Medications Haloperidol Lactate (Haldol) 5 mg IM Q6HR PRN PRN Reason: Agitation or Acute Psychosis Haloperidol Lactate (Haldol) 1 - 2 mg IVP Q2HR PRN PRN Reason: Agitation or Acute Psychosis Last Admin: 02/20/18 20:43 Dose: 2 mg Heparin Sodium (Porcine) (Heparin) 5,000 unit SQ Q12HR [facility] Last Admin: 02/21/18 09:09 Dose: 5,000 unit Lorazepam (Ativan) 2 mg IV Q1HR PRN PRN Reason: Anxiety Last Admin: 02/21/18 00:53 Dose: 2 mg Lorazepam (Ativan) 2 mg IV Q30M PRN PRN Reason: Agitation Last Admin: 02/20/18 18:56 Dose: 2 mg Miscellaneous Information (Magnesium Per Protocol) 1 each MISCELLANE DAILY PRN ; Protocol PRN Reason: Per Protocol Naloxone HCl (Narcan) 0.2 mg IV Q2M PRN PRN Reason: Opioid Reversal Pantoprazole Sodium (Protonix) 40 mg PO AC[facility] Objective - Vital Signs Vital signs: Vital Signs Temp 98.1 F 02/20/18 08:00 Pulse 116 H 02/20/18 15:00 Resp 27 H 02/20/18 15:00 BP 111/69 02/20/18 15:00 Pulse Ox 97 02/20/18 15:00 Intake & Output 02/19/18 02/20/18 02/20/18 18:59 06:59 18:59 Intake Total 475 1500 1225 Output Total 805 1380 540 Balance -330 120 685 Weight 55 kg 55.5 kg 55.5 kg Intake: IV 1000 1125 normal Saline 0.9 1000 1125 Intake, IV Titration 475 500 100 Amount Magnesium Sulfate-D5w Pmx 100 1 gm In Dextrose/Water 1 100ml.bag @ 100 mls/hr IVPB Q1H [facility] Rx#: [id number] Sodium Chloride 0.9% 1, 475 500 000 ml @ 999 mls/hr IV . Q1H1M [facility] Rx#:[id number] Output: Urine 805 1380 540 Other: Voiding Method Indwelling Catheter Indwelling Catheter Indwelling Catheter - Exam PHYSICAL EXAM: VITAL SIGNS: As above GENERAL: Sitting up in bed, disoriented to person and place or time ,confused/ agitated , garbled speech HEENT: Conjunctivae normal. eyes normal. Oral mucosa moist NECK: No JVD. No thyroid enlargement. No LNs CARDIOVASCULAR: S1, S2 muffled. No murmur RESPIRATION: Breath sounds diminished in the bases. No rhonchi or crackles. ABDOMEN: Soft, nontender . No guarding. no masses palpable. Bowel sounds heard. LEGS: No edema. no swelling, and no clubbing NERVOUS SYSTEM: Unable to fully assess,Moves all 4 limbs. Skin: no rash, red small bumps , possibly bites noted mostly on the posterior back, few on legs , some with scabs. needle tracks noted on arms. Joints: No active swelling. No inflammation. Lymphatic system. No LN neck axilla or groin. - Labs CBC & Chem 7: 02/21/18 05:06 02/21/18 05:06 Labs: Abnormal Lab Results - Last 24 Hours (Table) 02/19/18 02/20/18 02/20/18 Range/Units 22:07 04:37 04:37 WBC 18.0 H (3.8-10.6) k/uL Neutrophils # 14.5 H (1.3-7.7) k/uL Chloride 108 H (98-107) mmol/L AST 90 H (17-59) U/L ALT 404 H (21-72) U/L Alkaline Phosphatase 178 H (38-126) U/L Hep C IgG Ab Reactive H (Non-Reactive) Microbiology - Last 24 Hours (Table) 02/19/18 10:00 Urine Culture - Preliminary Urine,Catheterized Assessment and Plan Assessment: -Change in mental status, possibly drug induced metabolic encephalopathy -History of IV drug abuse, polysubstance abuse, heroin, methamphetamines, Xanax -Hyperchloremia -Elevated LFTs, possibly hepatitis -Drug screen positive for THC, benzos -Suspected overdose Plan: Continue on current medication regime ,monitoring and symptomatic treatment. Ativan and Haldol doses increased as per keno clerk. Infectious disease consulted related to leukocytosis, and skin findings. Maintain suicide precautions. Mother petitioning For Inpatient Psychiatry Rehab. Psychiatry evaluation pending. Discussed options with mom including narcotic anonymous rehab. Social work consulted. Further recommendations to follow. The impression and plan of care has been dictated as directed. : I performed a history and examination of this patient, discussed the same with the dictator. I agree with the dictator's note ,documented as a scribe. Any additional findings or plans will be noted.
--- NOTE | 2018-02-21 17:09 | P.PN ---
Subjective Progress Note Date: 02/21/18 Progress Note being dictated for Dr. Wilson. Interval history: This a 27-year-old gentleman admitted in the ICU with change in mental status, possibly drug-induced, metabolic encephalopathy in a patient with history of polysubstance IV drug abuse including heroin, Xanax, methamphetamine, hepatitis C . Drug screen tested positive for THC. Significant agitation/confusion, requiring Haldol and prn Ativan. Mother at bedside, willing to petition patient for inpatient psychiatry unit. Mother states patient has been on methamphetamines and heparin for a year, history of depression, bipolar, states he is a "cutter". Suicide precautions maintained, psychiatry consulted with recommendations pending. Patient still disoriented, attempting to bite staff, speech garbled. LFTs improving. Afebrile, elevated WBC, infectious disease consulted. Maintained on IV fluid hydration, O2 sats in the high 90s on room air. Review of systems unable to obtain as patient confused as mentioned above. Active Medications Haloperidol Lactate (Haldol) 5 mg IM Q6HR PRN PRN Reason: Agitation or Acute Psychosis Haloperidol Lactate (Haldol) 1 - 2 mg IVP Q2HR PRN PRN Reason: Agitation or Acute Psychosis Last Admin: 02/20/18 20:43 Dose: 2 mg Heparin Sodium (Porcine) (Heparin) 5,000 unit SQ Q12HR [facility] Last Admin: 02/21/18 09:09 Dose: 5,000 unit Lorazepam (Ativan) 2 mg IV Q1HR PRN PRN Reason: Anxiety Last Admin: 02/21/18 00:53 Dose: 2 mg Lorazepam (Ativan) 2 mg IV Q30M PRN PRN Reason: Agitation Last Admin: 02/20/18 18:56 Dose: 2 mg Miscellaneous Information (Magnesium Per Protocol) 1 each MISCELLANE DAILY PRN ; Protocol PRN Reason: Per Protocol Naloxone HCl (Narcan) 0.2 mg IV Q2M PRN PRN Reason: Opioid Reversal Pantoprazole Sodium (Protonix) 40 mg PO AC-BRKFST [facility] 02/21/2018 more alert, alert and oriented 2, cooperative. Has not required Haldol or Ativan this morning. Sitter remains at bedside. Nonproductive cough , maintaining O2 sats in the high 90s. Afebrile, leukocytosis improving, LFTs improving. Objective - Vital Signs Vital signs: Vital Signs Temp 98.2 F 02/21/18 12:00 Pulse 112 H 02/21/18 14:00 Resp 21 02/21/18 14:00 BP 103/38 02/21/18 14:00 Pulse Ox 97 02/21/18 14:00 Intake & Output 02/20/18 02/21/18 02/21/18 18:59 06:59 18:59 Intake Total 1725 1800 1205 Output Total 1150 2290 1265 Balance 575 -490 -60 Weight 55.5 kg 53.7 kg Intake: IV 1625 1500 125 normal Saline 0.9 1625 1500 125 Intake, IV Titration 100 300 Amount Magnesium Sulfate-D5w Pmx 100 1 gm In Dextrose/Water 1 100ml.bag @ 100 mls/hr IVPB Q1H [facility] Rx#: [id number] Magnesium Sulfate-D5w Pmx 300 1 gm In Dextrose/Water 1 100ml.bag @ 100 mls/hr IVPB Q1H [facility] Rx#: [id number] Oral 300 780 Output: Urine 1150 2290 1265 Other: Voiding Method Indwelling Catheter Indwelling Catheter Indwelling Catheter - Exam PHYSICAL EXAM: VITAL SIGNS: As above GENERAL: Sitting up in bed, alert and oriented to person and place, no acute distress,mild shakiness HEENT: Conjunctivae normal. eyes normal. Oral mucosa moist NECK: No JVD. No thyroid enlargement. No LNs CARDIOVASCULAR: S1, S2 muffled. No murmur, mild tachycardia. RESPIRATION: Breath sounds diminished in the bases. No rhonchi or crackles. ABDOMEN: Soft, nontender . No guarding. no masses palpable. No hepatosplenomegaly. Bowel sounds heard. LEGS: No edema. no swelling, and no clubbing NERVOUS SYSTEM: No focal deficits, moves all 4 extremities Skin: no rash, red small bumps , possibly bites noted mostly on the posterior back, few on legs , some with scabs. needle tracks noted on arms. Joints: No active swelling. No inflammation. Lymphatic system. No LN neck axilla or groin. - Labs CBC & Chem 7: 02/21/18 05:06 02/21/18 05:06 Labs: Abnormal Lab Results - Last 24 Hours (Table) 02/21/18 02/21/18 Range/Units 05:06 05:06 WBC 16.0 H (3.8-10.6) k/uL Neutrophils # 12.0 H (1.3-7.7) k/uL Chloride 109 H (98-107) mmol/L ALT 255 H (21-72) U/L Alkaline Phosphatase 149 H (38-126) U/L Total Protein 6.1 L (6.3-8.2) g/dL Albumin 3.2 L (3.5-5.0) g/dL Microbiology - Last 24 Hours (Table) 02/19/18 10:00 Urine Culture - Final Urine,Catheterized 02/19/18 22:07 Blood Culture - Preliminary Blood No Growth after 24 hours Assessment and Plan Assessment: -Change in mental status, possibly drug induced metabolic encephalopathy -History of IV drug abuse, polysubstance abuse, heroin, methamphetamines, Xanax -Hyperchloremia -Elevated LFTs, possibly hepatitis -Drug screen positive for THC, benzos -Suspected overdose -Hepatitis C Plan: Continue on current medication regime ,monitoring and symptomatic treatment. Maintain suicide precautions. Mother petitioned For Inpatient Psychiatry Rehab. And Dr. Wilson will complete cert. Psychiatry re-evaluation requested. Cleared by billboard poster helper to transfer out of ICU. Discharge planning in progress for [facility], pending psychiatry's eval. Further recommendations to follow. The impression and plan of care has been dictated as directed. : I performed a history and examination of this patient, discussed the same with the dictator. I agree with the dictator's note ,documented as a scribe. Any additional findings or plans will be noted.
[2018-02-21] MEDS ORDERED: PANTOPRAZOLE SODIUM 40 MG GRANULE PKT PO SCH (21:00)
[2018-02-22 05:55] LABS: Basophils % (A) 0 %; Eosinophils # (A) 0.1 k/uL (0-0.7); Eosinophils % (A) 1 %; HCT 45.8 % (39.0-53.0); HGB 15.3 gm/dL (13.0-17.5); Lymphocytes # (A) 2.4 k/uL (1.0-4.8); Lymphocytes % (A) 25 %; MCH 31.5 pg (25.0-35.0); MCHC 33.5 g/dL (31.0-37.0); MCV 94.2 fL (80.0-100.0); Mean Platelet Volume 6.9; Monocytes # (A) 0.7 k/uL (0-1.0); Monocytes % (A) 8 %; Neutrophils # (A) 6.3 k/uL (1.3-7.7); Neutrophils % (A) 64 %; Platelet Count 295 k/uL (150-450); RBC 4.86 m/uL (4.30-5.90); WBC 9.8 k/uL (3.8-10.6)
[2018-02-22 06:10] LABS: ALT 207 U/L (21-72); AST 45 U/L (17-59); Albumin 3.7 g/dL (3.5-5.0); Alkaline Phosphatase 139 U/L (38-126); Anion Gap 8 mmol/L; Blood Urea Nitrogen 13 mg/dL (9-20); Calcium 9.9 mg/dL (8.4-10.2); Carbon Dioxide 26 mmol/L (22-30); Chloride 105 mmol/L (98-107); Glucose 129 mg/dL (74-99); Potassium 4.4 mmol/L (3.5-5.1); Sodium 139 mmol/L (137-145); Total Bilirubin 0.6 mg/dL (0.2-1.3); Total Protein 6.8 g/dL (6.3-8.2)
[2018-02-22] MEDS ORDERED: PANTOPRAZOLE SODIUM 40 MG GRANULE PKT PO SCH (07:30)
--- NOTE | 2018-02-22 09:31 | P.PN ---
Subjective Progress Note Date: 02/22/18 Principal diagnosis: Drug overdose Patient is seen today in follow-up in the intensive care unit. He is awake and alert in no acute distress. He is maintaining good O2 saturations in the 90s on room air. The 0.9 normal saline and 125 ML's per hour. He does admit to utilizing heroin, methamphetamines, Xanax. There is also bottles and Mucinex and cyclobenzaprine at the scene. This drug screen was positive for benzodiazepines and marijuana. Hepatitis C positive. Blood and urine cultures reveal no growth. White count 16.0. Hemoglobin 14.3. Creatinine 0.67. AST 255, ALT 149. His last dose of Haldol was 20:43 last evening, he did require Ativan 2 mg at 1:00 this morning or restlessness and agitation. He is more cooperative this morning. On 02/22/2018 patient seen in follow-up in the intensive care unit, remains stable, he is awake and alert, there is a patient safety officer at the bedside, patient has no signs of delirium or agitation. Vital signs remain stable, her pulse ox is 96%, hemodynamically stable, no fever, no chills. Cultures are negative. No new chest x-rays today. Today's blood work has been reviewed, WBC is 9.8, hemoglobin is 15.3, electrolytes and renal profile are within normal limits. he has been evaluated by psychiatry, from pulmonary/coital care perspective patient is stable for transfer to general medical floor, or to the psychiatric inpatient unit Objective - Vital Signs Vital signs: Vital Signs Temp 98.9 F 02/22/18 00:00 Pulse 81 02/22/18 07:00 Resp 15 02/22/18 07:00 BP 113/76 02/22/18 07:00 Pulse Ox 96 02/22/18 07:00 Intake & Output 02/21/18 02/22/18 02/22/18 18:59 06:59 18:59 Intake Total 1685 480 Output Total 2765 3890 Balance -1080 -3410 Intake: IV 125 normal Saline 0.9 125 Intake, IV Titration 300 Amount Magnesium Sulfate-D5w Pmx 300 1 gm In Dextrose/Water 1 100ml.bag @ 100 mls/hr IVPB Q1H MANOJ Rx#: [id number] Oral 1260 480 Output: Urine 2765 3890 Other: Voiding Method Indwelling Catheter Indwelling Catheter - Exam GENERAL EXAM: Alert, active, comfortable in no apparent distress. HEAD: Normocephalic. EYES: Normal reaction of pupils, equal size. NOSE: Clear with pink turbinates. THROAT: No erythema or exudates. NECK: No masses, no JVD. CHEST: No chest wall deformity. LUNGS: Equal air entry with no crackles, wheeze, rhonchi or dullness. CVS: S1 and S2 normal with no audible murmur, regular rhythm. ABDOMEN: No hepatosplenomegaly, normal bowel sounds, no guarding or rigidity. SPINE: No scoliosis or deformity SKIN: No rashes CENTRAL NERVOUS SYSTEM: No focal deficits, tone is normal in all 4 extremities. EXTREMITIES: There is no peripheral edema. No clubbing, no cyanosis. Peripheral pulses are intact. - Labs CBC & Chem 7: 02/22/18 05:12 02/22/18 05:12 Labs: Abnormal Lab Results - Last 24 Hours (Table) 02/22/18 Range/Units 05:12 Glucose 129 H (74-99) mg/dL ALT 207 H (21-72) U/L Alkaline Phosphatase 139 H (38-126) U/L Microbiology - Last 24 Hours (Table) 02/19/18 22:07 Blood Culture - Preliminary Blood No Growth after 48 hours Assessment and Plan Plan: #1 Drug overdose of uncertain medications. Mucinex and Flexeril bottles were found seen. The patient this morning admits to use of heroin, methamphetamines and Xanax. Drug screen was positive for benzodiazepines and marijuana. Plan: He remains stable, no acute events overnight, no signs of delirium or agitation. sales agent fire insurance is at the bedside, no specific complaints, vitals are stable. From pulmonary/critical care perspective patient is stable for transfer to general medical floor or inpatient psychiatric unit. I performed a history & physical examination of the patient and discussed their management with my nurse practitioner, Jenise Frey. I reviewed the nurse practitioner's note and agree with the documented findings and plan of care. Lung sounds are clear The findings and the impression was discussed with the patient. I attest to the documentation by the nurse practitioner. Time with Patient: Less than 30
[2018-02-22 10:51] VITALS: BMI 16.5
[2018-02-22 12:01] LABS: Glucose,Whole Blood 111 mg/dL (75-99)
[2018-02-22] MEDS ORDERED: cloNIDine HCL 0.1 MG TAB PO STA (14:47)
[2018-02-22] MEDS ORDERED: NICOTINE 21MG/24HR PATCH TRANSDERM STA (16:15)
[2018-02-22 17:32] LABS: Glucose,Whole Blood 134 mg/dL (75-99)
--- NOTE | 2018-02-22 17:32 | CONS ---
CONSULTATION DATE OF SERVICE: 02/22/2018. REASON FOR CONSULTATION: Rash on the back and posterior thigh area. HISTORY OF PRESENT ILLNESS: The patient is a 27-year-old male with a past medical history significant for IV drug use. The patient was brought into the ER at [facility] on 02/19/2018. However, the patient's girlfriend says that he was acting bizarre and not making any sense at home, so the EMS was called in. Apparently, the patient also noticed may have taken the Mucinex and Tylenol as the patient complaining of some pain in his neck area. With these symptoms, the patient has been evaluated by the ER physician. On arrival to the ER, the patient has been afebrile. He was hemodynamically stable. His white count was normal at 6.5. The patient did have a urine drug screen positive for marijuana and benzodiazepine. Serum alcohol level was less than 10. Tylenol was less than 10, salicylate was less than 1. Hepatitis C antibodies were positive. The patient subsequently has been admitted to ICU for management of his polysubstance abuse and drug overdose. The patient was noticed yesterday to have a small skin rash on his back and posterior thigh area that prompted this infectious disease consultation. Patient's main symptom has been pain in his neck area posteriorly and he thought he may have but currently with no redness or any open wounds or any pimple. What has been described on the back is more likely dried up folliculitis with no active lesions were noticed. The patient currently with minimal rash, itching, but no pain or any open wounds or any drainage. No joint swelling or any redness. Currently denies having any chest pain, no shortness of breath or cough. No abdominal pain. No diarrhea. REVIEW OF SYSTEMS: Positive for weakness but no fever. Eyes: No complaint. ENT no complaint. Respiratory: No complaint. Cardiovascular: No complaint. Genitourinary: No complaint. Gastrointestinal: No complaint. Musculoskeletal: No complaint. Integumentary: As per HPI. Psychological as per HPI. Endocrine: No complaint. Neurological as per HPI. PAST MEDICAL HISTORY: Polysubstance abuse, but no other medical illness, chronic hepatitis C. PAST SURGICAL HISTORY: No major surgeries. SOCIAL HISTORY: History of heroin and IV drug use. No drinking. FAMILY HISTORY: No pertinent findings noticed. ALLERGIES: PENICILLIN. MEDICATION: Include the patient is currently on Catapres, Haldol and Ativan, Narcan and nicotine patch. PHYSICAL EXAMINATION: Blood pressure 133/80 with a pulse of 96, temperature 98. He is 97% on room air. General description is a middle-aged male lying in bed in no distress. No tachypnea or accessory muscles of respiration use. HEENT: Shows no pallor or scleral icterus. Oral mucosa membranes are dry. No pharyngeal erythema or thrush. Neck trachea central. No thyromegaly. Lungs unlabored breathing. Clear to auscultation anteriorly. No wheeze or crackles. Heart S1, S2. Regular rate and rhythm. ABDOMEN: Soft. No tenderness. No guarding or rigidity. Extremities: No edema of the feet. Skin examination: Shows mostly dry folliculitis, there is but no active folliculitis or no open wound. No active rash. NEUROLOGIC: The patient is awake, alert, oriented x3. Mood and affect normal. LABS: Hemoglobin is 15.2, white of 9.8. BUN of 13, creatinine 0.75. Electrolytes have been normal. Liver enzymes mildly elevated. DIAGNOSTIC IMPRESSION AND PLAN: 1. Patient with a rash on the back which is mostly a dry up folliculitis. No active follicular lesion has been noticed. No acute rash. No need for any systemic antibiotic therapy. 2. Patient with chronic hepatitis C can be managed in the outpatient setting once the patient is cleaned off drugs. PLAN: 1. No need for any systemic antibiotic therapy. 2. Workup for chronic hepatitis C once the patient is cleaned of drugs in outpatient setting. 3. Plan of care discussed in detail with the nurse practitioner for the admitting team. MMODL / IJN: [id number] /
[2018-02-22 20:51] VITALS: RESP 18
[2018-02-22] MEDS ORDERED: cloNIDine HCL 0.1 MG TAB PO SCH (21:00)
[2018-02-23] MEDS: LORazepam 2 MG/ML INJ IV PRN ×2 (00:19→07:10)
[2018-02-23 00:25] VITALS: TEMP 98.2
[2018-02-23 04:55] VITALS: BP 123/84; PULSE 73
[2018-02-23 06:33] LABS: Basophils % (A) 1 %; Eosinophils # (A) 0.3 k/uL (0-0.7); Eosinophils % (A) 3 %; HCT 47.7 % (39.0-53.0); HGB 15.8 gm/dL (13.0-17.5); Lymphocytes # (A) 2.9 k/uL (1.0-4.8); Lymphocytes % (A) 31 %; MCH 31.1 pg (25.0-35.0); MCHC 33.1 g/dL (31.0-37.0); Mean Platelet Volume 7.4; Monocytes # (A) 0.8 k/uL (0-1.0); Monocytes % (A) 9 %; Neutrophils % (A) 54 %; Platelet Count 345 k/uL (150-450); RBC 5.07 m/uL (4.30-5.90); WBC 9.2 k/uL (3.8-10.6)
[2018-02-23 06:41] LABS: ALT 180 U/L (21-72); AST 60 U/L (17-59); Albumin 3.7 g/dL (3.5-5.0); Alkaline Phosphatase 125 U/L (38-126); Anion Gap 10 mmol/L; Blood Urea Nitrogen 15 mg/dL (9-20); Calcium 10.1 mg/dL (8.4-10.2); Carbon Dioxide 25 mmol/L (22-30); Chloride 106 mmol/L (98-107); Glucose 101 mg/dL (74-99); Potassium 4.6 mmol/L (3.5-5.1); Sodium 141 mmol/L (137-145); Total Bilirubin 0.4 mg/dL (0.2-1.3); Total Protein 6.9 g/dL (6.3-8.2)
--- NOTE | 2018-02-23 08:27 | DS ---
DISCHARGE SUMMARY FINAL DIAGNOSIS: 1. Change in mental status, possible drug induced metabolic encephalopathy and delirium. 2. History of IV drug abuse, polysubstance abuse, heroin, methamphetamine and Xanax. 3. Hypochloremia. 4. Elevated LFTs, possibly hepatitis secondary to hepatitis C. 5. History of drug induced positive for THC and benzos. 6. Suspect overdose. 7. History of hepatitis C. DISCHARGE DISPOSITION: The patient being discharged in stable condition with guarded prognosis. The patient transferred to inpatient psych floor in stable condition with guarded prognosis. HISTORY OF PRESENT ILLNESS: This 27-year-old gentleman with a past medical history of multiple medical problems being followed by no primary care physician, was admitted with significant overdose and the patient also had change in mental status and features of psychosis also. The patient treated symptomatically. Patient improved significantly. Psych saw the patient. The patient will require inpatient psych treatment at this time because of mental impairment on above-mentioned basis. The patient will be discharged in stable condition with guarded prognosis. The patient being transferred to inpatient psych. PHYSICAL EXAMINATION: On exam, vital signs stable. Cardiovascular: S1, S2. Abdomen soft. Central nervous system: No focal deficits. DISCHARGE ADVICE AND MEDICATIONS: 1. Diet is regular. 2. Activity limited followup. MEDICATIONS ARE: 1. Catapres 0.1 p.o. b.i.d. 2. Habitrol 21. 3. Rest of the medications per psych. MMODL / IJN: [id number] /
[2018-02-23] MEDS ORDERED: NICOTINE 21MG/24HR PATCH TRANSDERM SCH (16:00)
== END 2018-02-23 08:06 | DRG 917 ==
LOC: EC 09:04 → 2SICU 13:14
PROVIDERS: ADMIT Hospitalist; ATTEND Hospitalist
DX: T50.901A Poisoning by unspecified drugs, medicaments and biological substances, accidental (unintentional), initial encounter (principal); G92 Toxic encephalopathy; F23 Brief psychotic disorder; E87.8 Other disorders of electrolyte and fluid balance, not elsewhere classified; B18.2 Chronic viral hepatitis C; D72.829 Elevated white blood cell count, unspecified; F41.9 Anxiety disorder, unspecified; F32.9 Major depressive disorder, single episode, unspecified; M54.2 Cervicalgia; L73.9 Follicular disorder, unspecified; R73.9 Hyperglycemia, unspecified; R79.89 Other specified abnormal findings of blood chemistry; F11.10 Opioid abuse, uncomplicated; F13.10 Sedative, hypnotic or anxiolytic abuse, uncomplicated; F15.10 Other stimulant abuse, uncomplicated; Y92.9 Unspecified place or not applicable
CPT/HCPCS: 36415; 70450; 71045; 80053; 80074; 80306; 80320; 81001; 82140; 82550; 82553; 83520; 83735; 84100; 84484; 85025; 85610; 85730; 87040; 87086; 93005; 96361; 96374; 96376; 99152; 99153; 99285

== ENCOUNTER 2018-02-23 07:39 | Inpatient (IN) | payer MEDICAID, OTHER ==
[2018-02-23] MEDS ORDERED: ACETAMINOPHEN TAB 325 MG TAB PO PRN (08:18)
[2018-02-23] MEDS ORDERED: ZIPRASIDONE 20 MG VIAL IM PRN (08:18)
[2018-02-23] MEDS ORDERED: MAGNESIUM HYDROXIDE 2,400 MG/10 ML CUP PO PRN (08:18)
[2018-02-23] MEDS ORDERED: LORazepam 1 MG TAB PO PRN (08:18)
[2018-02-23] MEDS ORDERED: MAG HYDROX/AL HYDROX/SIMETH 30 ML CUP PO PRN (08:18)
[2018-02-23] MEDS ORDERED: traZODone HCL 50 MG TAB PO PRN (08:28)
[2018-02-23 08:42] VITALS: BMI 19.7
[2018-02-23] MEDS: DIVALPROEX ER 250 MG TAB.ER.24H PO SCH ×3 (09:00→20:26)
[2018-02-23] MEDS: NICOTINE 21MG/24HR PATCH TRANSDERM SCH (09:00)
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
[2018-02-23 12:26] LABS: Basophils # (A) 0.1 k/uL (0-0.2); Basophils % (A) 1 %; Eosinophils # (A) 0.2 k/uL (0-0.7); Eosinophils % (A) 2 %; HCT 47.9 % (39.0-53.0); HGB 15.6 gm/dL (13.0-17.5); Lymphocytes # (A) 2.4 k/uL (1.0-4.8); Lymphocytes % (A) 23 %; MCH 30.8 pg (25.0-35.0); MCHC 32.6 g/dL (31.0-37.0); MCV 94.5 fL (80.0-100.0); Mean Platelet Volume 6.6; Monocytes # (A) 0.7 k/uL (0-1.0); Monocytes % (A) 7 %; Neutrophils # (A) 6.7 k/uL (1.3-7.7); Neutrophils % (A) 65 %; Platelet Count 391 k/uL (150-450); RBC 5.06 m/uL (4.30-5.90); RDW 12.8 % (11.5-15.5); WBC 10.4 k/uL (3.8-10.6)
[2018-02-23 12:50] LABS: ALT 183 U/L (21-72); AST 65 U/L (17-59); Albumin 4.1 g/dL (3.5-5.0); Alkaline Phosphatase 130 U/L (38-126); Anion Gap 10 mmol/L; Bilirubin, Delta 0.2 mg/dL (0.0-0.2); Bilirubin,Unconjugated 0.2 mg/dL (0.0-1.1); Blood Urea Nitrogen 15 mg/dL (9-20); Calcium 10.3 mg/dL (8.4-10.2); Carbon Dioxide 26 mmol/L (22-30); Chloride 104 mmol/L (98-107); Cholesterol 147 mg/dL (<200); Glucose 92 mg/dL (74-99); HDL Cholesterol 41 mg/dL (40-60); LDL Cholesterol,Calculated 77 mg/dL (0-99); Potassium 4.9 mmol/L (3.5-5.1); Sodium 140 mmol/L (137-145); Total Bilirubin 0.4 mg/dL (0.2-1.3); Total Protein 7.5 g/dL (6.3-8.2); Triglycerides 143 mg/dL (<150)
--- NOTE | 2018-02-23 17:49 | P.CONS ---
History of Present Illness - Reason for Consult Medical clearance hepatitis A - History of Present Illness [id number] pleasant gentleman was admitted to psychiatric floor after treated for drug overdose polysubstance use IV heroine use with positive hep C. Patient refuses nausea vomiting abdominal pain. I had extensive discussion regarding hepatitis and importance of following with gastroenterology patient will be referred to gastroneurology as an outpatient. Patient denied any fever chills patient's only complaint is he become short of breath with trazodone and I made psychiatry nursing staff aware regarding this Review of Systems REVIEW OF SYSTEMS: CONSTITUTIONAL: No fever, no malaise, no fatigue. HEENT: No recent visual problems or hearing problems. Denied any sore throat. CARDIOVASCULAR: No chest pain, orthopnea, PND, no palpitations, no syncope. PULMONARY: No shortness of breath, no cough, no hemoptysis. GASTROINTESTINAL: No diarrhea, no nausea, no vomiting, no abdominal pain. Normoactive bowel sounds. NEUROLOGICAL: No headaches, no weakness, no numbness. HEMATOLOGICAL: Denies any bleeding or petechiae. GENITOURINARY: Denies any burning micturition, frequency, or urgency. MUSCULOSKELETAL/RHEUMATOLOGICAL: Denies any joint pain, swelling, or any muscle pain. ENDOCRINE: Denies any polyuria or polydipsia. The rest of the 14-point review of systems is negative. Past Medical History Past Medical History: Unable to Obtain History of Any Multi-Drug Resistant Organisms: None Reported Past Surgical History: Unable to Obtain Past Anesthesia/Blood Transfusion Reactions: No Reported Reaction Past Psychological History: Unable to Obtain Smoking Status: Unknown if ever smoked Past Alcohol Use History: Occasional Past Drug Use History: Heroin, IV Drug Use Medications and Allergies Home Medications Medication Instructions Recorded Confirmed Type Nicotine 21Mg/24Hr Patch [Habitrol] 1 patch TRANSDERM DAILY@1600 patch 02/23/18 Rx cloNIDine HCL [Catapres] 0.1 mg PO BID tab 02/22/18 02/23/18 Rx Allergies Allergy/AdvReac Type Severity Reaction Status Date / Time Penicillins Allergy Unknown Verified 02/23/18 08:44 Childhood Physical Exam Vitals: Vital Signs Temp Pulse Resp BP 02/23/18 08:33 98.0 F 130 H 20 112/68 Intake and Output 12/01/18 12/01/18 12/01/18 06:59 14:59 22:59 Other: Weight 60.583 kg PHYSICAL EXAMINATION: GENERAL: The patient is alert and oriented x3, not in any acute distress. Thin built multiple injection scars and armando on all 4 limbs HEENT: Pupils are round and equally reacting to light. EOMI. No scleral icterus. No conjunctival pallor. Normocephalic, atraumatic. No pharyngeal erythema. No thyromegaly. CARDIOVASCULAR: S1 and S2 present. No murmurs, rubs, or gallops. PULMONARY: Chest is clear to auscultation, no wheezing or crackles. ABDOMEN: Soft, nontender, nondistended, normoactive bowel sounds. No palpable organomegaly. MUSCULOSKELETAL: No joint swelling or deformity. EXTREMITIES: No cyanosis, clubbing, or pedal edema. NEUROLOGICAL: Gross neurological examination did not reveal any focal deficits. SKIN: No rashes. Results CBC & Chem 7: 02/23/18 11:43 02/23/18 11:43 Labs: Abnormal Lab Results - Last 24 Hours (Table) 02/23/18 Range/Units 11:43 Calcium 10.3 H (8.4-10.2) mg/dL AST 65 H (17-59) U/L ALT 183 H (21-72) U/L Alkaline Phosphatase 130 H (38-126) U/L Assessment and Plan Plan: -Hepatitis C follow-up as an outpatient as mentioned above -Major depression: Management as per primary service -Multiple IV drug use: Counseling was provided, marijuana abuse: Counseling was provided
[2018-02-23] MEDS: diphenhydrAMINE 25 MG CAP PO SCH (20:26)
[2018-02-23] MEDS: cloNIDine HCL 0.1 MG TAB PO SCH (20:26)
[2018-02-23 20:59] LABS: Hemoglobin A1C 4.9 % (4.0-6.0)
[2018-02-24] MEDS: DIVALPROEX ER 250 MG TAB.ER.24H PO SCH (07:46)
[2018-02-24] MEDS: NICOTINE 21MG/24HR PATCH TRANSDERM SCH (07:46)
[2018-02-24] MEDS: cloNIDine HCL 0.1 MG TAB PO SCH ×2 (07:46→20:13)
--- NOTE | 2018-02-24 15:19 | P.PN ---
Progress Note - Text Progress Note Date: 02/24/18 IDENTIFICATION DATA: 27 YEAR male transferred from medical unit after being treated there for drug overdose (took 8 pills of Flexeril and 2mg of xanax bar in an attempt to overcome his heroin withdrawals). INTERVAL HISTORY: He says Benadryl did not help him with sleep last night and asked if he could get something stronger to sleep. He was explained about increasing his depakote dose to 1000mg po qhs instead of 250mg po tid today. If Patient continues to report sleep problems with higher doses of depakote also he is willing to take remeron. He is currently focused on his discharge. He reports he is done withdrawing from heroin and says he will not use it again stating it was the worst experience. He reports his appetite has increased and says he is eating well. He is currently complaint with his medications and denies side effects. MENTAL STATUS EXAMINATION: The patient is alert and oriented 4 and in no apparent distress. Motor and speech behaviors are within normal limits. Mood is "GREAT ready to go home" and affect is appropriate. thought processes linear thought content is negative for suicidal or homicidal ideation. insight and judgment are improving. ASSESSMENT AND PLAN: Will increase his depakote dose to 1000mg po qhs instead of 250mg po tid. If Patient continues to report sleep problems despite higher doses of depakote he is willing to take remeron. Continue current treatment Monitor for symptoms
[2018-02-24] MEDS: DIVALPROEX ER 500 MG TAB.ER.24H PO SCH (20:13)
[2018-02-24] MEDS: diphenhydrAMINE 25 MG CAP PO SCH (20:13)
[2018-02-25] MEDS: NICOTINE 21MG/24HR PATCH TRANSDERM SCH (08:55)
[2018-02-25] MEDS: cloNIDine HCL 0.1 MG TAB PO SCH ×2 (08:56→20:06)
--- NOTE | 2018-02-25 10:23 | P.PN ---
Subjective Progress Note Date: 02/25/18 Principal diagnosis: Bipolar depressed and heroin addiction plus methampetimes IDENTIFICATION DATA: 27 YEAR male transferred from medical unit after being treated there for drug overdose (took 8 pills of Flexeril and 2mg of xanax bar in an attempt to overcome his heroin withdrawals). Objective - Vital Signs Vital signs: Vital Signs Temp 98.0 F 02/25/18 06:27 Pulse 99 02/25/18 09:07 Resp 18 02/25/18 09:07 BP 118/67 02/25/18 09:07 Pulse Ox Intake & Output 02/24/18 02/25/18 02/25/18 18:59 06:59 18:59 Weight 61.4 kg - Labs CBC & Chem 7: 02/23/18 11:43 02/23/18 11:43 Assessment and Plan Assessment: INTERVAL HISTORY: He says Benadryl did not help him with sleep last night and asked if he could get something stronger to sleep. He was explained about increasing his depakote dose to 1000mg po qhs instead of 250mg po tid today. If Patient continues to report sleep problems with higher doses of depakote also he is willing to take remeron. He is currently focused on his discharge. He reports he is done withdrawing from heroin and says he will not use it again stating it was the worst experience. He reports his appetite has increased and says he is eating well. He is currently complaint with his medications and denies side effects. MENTAL STATUS EXAMINATION: The patient is alert and oriented 4 and in no apparent distress. Motor and speech behaviors are within normal limits. Mood is "GREAT ready to go home" and affect is appropriate. thought processes linear thought content is negative for suicidal or homicidal ideation. insight and judgment are improving. Depakote blood level Plan: Plan 27-year-old male petitioned by his mother for bizarre behaviors. He signed voluntary treatment consent. Routine history and physical by medicine Psychosocial evaluation. After discussing benefits and risks of medications he has agreed to take Depakote. He refused to take lithium. Will start him on depakote 250mg po tid and dose will titrated as tolerated . Monitor for symptoms will receive milieu therapy group therapy individual therapy occupational therapy recreational therapy and medication education.
[2018-02-25] MEDS: PRAMIPEXOLE 1 MG TAB PO SCH (20:05)
[2018-02-25] MEDS: diphenhydrAMINE 25 MG CAP PO SCH (20:05)
[2018-02-25] MEDS: DIVALPROEX ER 500 MG TAB.ER.24H PO SCH (20:06)
[2018-02-26] MEDS: NICOTINE 21MG/24HR PATCH TRANSDERM SCH (08:53)
[2018-02-26] MEDS: cloNIDine HCL 0.1 MG TAB PO SCH ×2 (09:02→20:19)
--- NOTE | 2018-02-26 10:17 | P.PN ---
Subjective Progress Note Date: 02/26/18 Principal diagnosis: Bipolar depressed and heroin addiction plus methampetimes IDENTIFICATION DATA: 27 YEAR male transferred from medical unit after being treated there for drug overdose (took 8 pills of Flexeril and 2mg of xanax bar in an attempt to overcome his heroin withdrawals). Objective - Vital Signs Vital signs: Vital Signs Temp 98.5 F 02/26/18 06:29 Pulse 86 02/26/18 06:29 Resp 16 02/26/18 06:29 BP 123/66 02/26/18 06:29 Pulse Ox - Labs CBC & Chem 7: 02/23/18 11:43 02/23/18 11:43 Assessment and Plan Assessment: INTERVAL HISTORY: He says Benadryl did not help him with sleep last night and asked if he could get something stronger to sleep. He was explained about increasing his depakote dose to 1000mg po qhs instead of 250mg po tid today. If Patient continues to report sleep problems with higher doses of depakote also he is willing to take remeron. He is currently focused on his discharge. He reports he is done withdrawing from heroin and says he will not use it again stating it was the worst experience. He reports his appetite has increased and says he is eating well. He is currently complaint with his medications and denies side effects. MENTAL STATUS EXAMINATION: The patient is alert and oriented 4 and in no apparent distress. Motor and speech behaviors are within normal limits. Mood is "GREAT ready to go home" and affect is appropriate. thought processes linear thought content is negative for suicidal or homicidal ideation. insight and judgment are improving. Depakote blood level (1) Drug overdose Current Visit: Yes Status: Acute Priority: Medium Code(s): T50.901A - POISONING BY UNSP DRUG/MEDS/BIOL SUBST, ACCIDENTAL, INIT SNOMED Code(s): 12778975 (2) Psychoses Current Visit: Yes Status: Acute Priority: Medium Code(s): F29 - UNSP PSYCHOSIS NOT DUE TO A SUBSTANCE OR KNOWN PHYSIOL COND SNOMED Code(s): 26283249 (3) Bipolar 1 disorder, depressed Current Visit: Yes Status: Acute Priority: Medium Code(s): F31.9 - BIPOLAR DISORDER, UNSPECIFIED SNOMED Code(s): 18646616 Plan: Plan 27-year-old male petitioned by his mother for bizarre behaviors. He signed voluntary treatment consent. Routine history and physical by medicine Psychosocial evaluation. After discussing benefits and risks of medications he has agreed to take Depakote. Continue on depakote 1000mg and dose will titrated as tolerated . Monitor for symptoms will receive milieu therapy group therapy individual therapy occupational therapy recreational therapy and medication education. Time with Patient: Less than 30
[2018-02-26] MEDS: DIVALPROEX ER 500 MG TAB.ER.24H PO SCH (20:19)
[2018-02-26] MEDS: diphenhydrAMINE 25 MG CAP PO SCH (20:19)
[2018-02-26] MEDS ORDERED: PALIPERIDONE 3 MG TAB.ER.24 PO SCH (21:00)
[2018-02-26] MEDS: PRAMIPEXOLE 1 MG TAB PO SCH (21:03)
[2018-02-27] MEDS: cloNIDine HCL 0.1 MG TAB PO SCH ×2 (08:20→20:04)
[2018-02-27] MEDS: NICOTINE 14MG/24HR PATCH TRANSDERM SCH (08:35)
--- NOTE | 2018-02-27 12:13 | P.PN ---
Subjective Progress Note Date: 02/27/18 Principal diagnosis: Bipolar depressed and heroin addiction plus methampetimes IDENTIFICATION DATA: 27 YEAR male transferred from medical unit after being treated there for drug overdose (took 8 pills of Flexeril and 2mg of xanax bar in an attempt to overcome his heroin withdrawals).He is now stability and detoxing from metamphetamines. He is also polysubstance for many drugs. Objective - Vital Signs Vital signs: Vital Signs Temp 98.1 F 02/27/18 06:36 Pulse 119 H 02/27/18 08:22 Resp 16 02/27/18 06:36 BP 113/74 02/27/18 08:22 Pulse Ox - Labs CBC & Chem 7: 02/23/18 11:43 02/23/18 11:43 Assessment and Plan Assessment: INTERVAL HISTORY: He says Benadryl did not help him with sleep last night and asked if he could get something stronger to sleep. He was explained about increasing his depakote dose to 1000mg po qhs instead of 250mg po tid today. If Patient continues to report sleep problems with higher doses of depakote also he is willing to take remeron. He is currently focused on his discharge. He reports he is done withdrawing from heroin and says he will not use it again stating it was the worst experience. He reports his appetite has increased and says he is eating well. He is currently complaint with his medications and denies side effects. MENTAL STATUS EXAMINATION: The patient is alert and oriented 4 and in no apparent distress. Motor and speech behaviors are within normal limits. Mood is "GREAT ready to go to rehab" and affect is appropriate. thought processes linear thought content is negative for suicidal or homicidal ideation. insight and judgment are improving. Depakote blood level (1) Drug overdose Current Visit: Yes Status: Acute Priority: Medium Code(s): T50.901A - POISONING BY UNSP DRUG/MEDS/BIOL SUBST, ACCIDENTAL, INIT SNOMED Code(s): 01785313 (2) Psychoses Current Visit: Yes Status: Acute Priority: Medium Code(s): F29 - UNSP PSYCHOSIS NOT DUE TO A SUBSTANCE OR KNOWN PHYSIOL COND SNOMED Code(s): 77957439 (3) Bipolar 1 disorder, depressed Current Visit: Yes Status: Acute Priority: Medium Code(s): F31.9 - BIPOLAR DISORDER, UNSPECIFIED SNOMED Code(s): 61130387 Plan: Plan 27-year-old male petitioned by his mother for bizarre behaviors. He signed voluntary treatment consent. Routine history and physical by medicine Psychosocial evaluation. After discussing benefits and risks of medications he has agreed to take Depakote. Continue on depakote 1000mg and dose will titrated as tolerated . Monitor for symptoms will receive milieu therapy group therapy individual therapy occupational therapy recreational therapy and medication education. Increase invega 6 mg and cmp today.
[2018-02-27] MEDS: PRAMIPEXOLE 1 MG TAB PO SCH (20:05)
[2018-02-27] MEDS: DIVALPROEX ER 500 MG TAB.ER.24H PO SCH (20:05)
[2018-02-27] MEDS: diphenhydrAMINE 25 MG CAP PO SCH (20:05)
[2018-02-27] MEDS ORDERED: PALIPERIDONE 6 MG TAB.ER.24 PO SCH (21:00)
[2018-02-28] MEDS: NICOTINE 14MG/24HR PATCH TRANSDERM SCH (08:17)
[2018-02-28] MEDS: cloNIDine HCL 0.1 MG TAB PO SCH ×2 (08:17→19:58)
[2018-02-28 12:18] LABS: ALT 238 U/L (21-72); AST 79 U/L (17-59); Alkaline Phosphatase 123 U/L (38-126); Anion Gap 10 mmol/L; Blood Urea Nitrogen 20 mg/dL (9-20); Calcium 10.1 mg/dL (8.4-10.2); Carbon Dioxide 26 mmol/L (22-30); Chloride 104 mmol/L (98-107); Glucose 98 mg/dL (74-99); Potassium 4.8 mmol/L (3.5-5.1); Sodium 140 mmol/L (137-145); Total Bilirubin 0.3 mg/dL (0.2-1.3); Total Protein 7.3 g/dL (6.3-8.2)
[2018-02-28] MEDS ORDERED: diphenhydrAMINE 50 MG CAP PO PRN (14:05)
--- NOTE | 2018-02-28 14:08 | P.PN ---
Subjective Progress Note Date: 02/28/18 Principal diagnosis: Bipolar depressed and heroin addiction plus methampetimes IDENTIFICATION DATA: 27 YEAR male transferred from medical unit after being treated there for drug overdose (took 8 pills of Flexeril and 2mg of xanax bar in an attempt to overcome his heroin withdrawals).He is now stability and detoxing from metamphetamines. He is also polysubstance for many drugs. Objective - Vital Signs Vital signs: Vital Signs Temp 97.5 F L 02/28/18 06:32 Pulse 125 H 02/28/18 08:46 Resp 18 02/28/18 08:46 BP 119/67 02/28/18 08:46 Pulse Ox - Labs CBC & Chem 7: 02/23/18 11:43 02/28/18 10:50 Labs: Abnormal Lab Results - Last 24 Hours (Table) 02/28/18 Range/Units 10:50 AST 79 H (17-59) U/L ALT 238 H (21-72) U/L Assessment and Plan Assessment: INTERVAL HISTORY: He says Benadryl did not help him with sleep last night and asked if he could get something stronger to sleep. He was explained about increasing his depakote dose to 1000mg po qhs instead of 250mg po tid today. If Patient continues to report sleep problems with higher doses of depakote also he is willing to take remeron. He is currently focused on his discharge. He reports he is done withdrawing from heroin and says he will not use it again stating it was the worst experience. He reports his appetite has increased and says he is eating well. He is currently complaint with his medications and denies side effects. MENTAL STATUS EXAMINATION: The patient is alert and oriented 4 and in no apparent distress. Motor and speech behaviors are within normal limits. Mood is "GREAT ready to go to rehab" and affect is appropriate. thought processes linear thought content is negative for suicidal or homicidal ideation. insight and judgment are improving. Depakote blood level (1) Drug overdose Current Visit: Yes Status: Acute Priority: Medium Code(s): T50.901A - POISONING BY UNSP DRUG/MEDS/BIOL SUBST, ACCIDENTAL, INIT SNOMED Code(s): 72655018 (2) Psychoses Current Visit: Yes Status: Acute Priority: Medium Code(s): F29 - UNSP PSYCHOSIS NOT DUE TO A SUBSTANCE OR KNOWN PHYSIOL COND SNOMED Code(s): 71933349 (3) Bipolar 1 disorder, depressed Current Visit: Yes Status: Acute Priority: Medium Code(s): F31.9 - BIPOLAR DISORDER, UNSPECIFIED SNOMED Code(s): 01584347 Plan: Plan 27-year-old male petitioned by his mother for bizarre behaviors. He signed voluntary treatment consent. Routine history and physical by medicine Psychosocial evaluation. After discussing benefits and risks of medications he has agreed to take Depakote. Continue on depakote 1000mg and dose will titrated as tolerated . Monitor for symptoms will receive milieu therapy group therapy individual therapy occupational therapy recreational therapy and medication education. Increase invega mg and ammonia and valproic level today. Time with Patient: Less than 30
[2018-02-28] MEDS: LACTULOSE 20 GM/30 ML CUP PO SCH (17:21)
[2018-02-28] MEDS: DIVALPROEX ER 500 MG TAB.ER.24H PO SCH (18:57)
[2018-02-28] MEDS: PRAMIPEXOLE 1 MG TAB PO SCH (19:59)
[2018-02-28] MEDS ORDERED: PALIPERIDONE 3 MG TAB.ER.24 PO SCH (21:00)
[2018-03-01 06:32] VITALS: TEMP 97.6
[2018-03-01] MEDS: cloNIDine HCL 0.1 MG TAB PO SCH (07:36)
[2018-03-01] MEDS: NICOTINE 14MG/24HR PATCH TRANSDERM SCH (07:36)
[2018-03-01] MEDS: LACTULOSE 20 GM/30 ML CUP PO SCH (07:36)
[2018-03-01 07:43] VITALS: BP 121/64; PULSE 116; RESP 18
[2018-03-01] MEDS ORDERED: DIVALPROEX ER 250 MG TAB.ER.24H PO SCH (09:00)
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
[2018-03-01 09:39] LABS: Bilirubin, Delta 0.4 mg/dL (0.0-0.2); Total Bilirubin 0.4 mg/dL (0.2-1.3); Total Protein 7.3 g/dL (6.3-8.2)
[2018-03-01 18:31] LABS: Hepatitis A Antibody IgM Non-Reactive (Non-Reactive); Hepatitis B Core IgM Non-Reactive (Non-Reactive)
== END 2018-03-01 10:09 | disposition home or self-care (01) | DRG 897 ==
LOC: 3MHU 08:11
PROVIDERS: ADMIT Psychiatry & Neurology Psychiatry; ATTEND Psychiatry & Neurology Psychiatry
DX: F11.20 Opioid dependence, uncomplicated (principal); F15.20 Other stimulant dependence, uncomplicated; F31.30 Bipolar disorder, current episode depressed, mild or moderate severity, unspecified; F90.9 Attention-deficit hyperactivity disorder, unspecified type; I10 Essential (primary) hypertension; F41.9 Anxiety disorder, unspecified; G25.81 Restless legs syndrome; B19.20 Unspecified viral hepatitis C without hepatic coma; R45.86 Emotional lability; R45.1 Restlessness and agitation; R45.87 Impulsiveness; Z79.899 Other long term (current) drug therapy; Z71.51 Drug abuse counseling and surveillance of drug abuser; Z91.5 Personal history of self-harm; Z65.3 Problems related to other legal circumstances; Z88.0 Allergy status to penicillin
CPT/HCPCS: 80053; 80061; 80074; 80076; 80164; 82140; 82248; 83036; 84443; 85025

== ENCOUNTER 2018-03-08 17:43 | Emergency (ER) | payer OTHER ==
--- NOTE | 2018-03-08 18:02 | ED ---
General Adult HPI - General Stated complaint: possibly poisoned Time Seen by Provider: 03/08/18 17:51 - History of Present Illness Initial comments: Dictation was produced using [employer] dictation software. please excuse any grammatical, word or spelling errors. Chief Complaint: 27-year-old male past medical history of heroin and methamphetamine abuse presents with concerns of possible toluene poisoning. History of Present Illness: A 27-year-old illicit drug abuser who presents with concerns for toluene poisoning. Patient states that he was doing drugs today. He was waking up from being passed out when he found a small bottle of toluene in a blanket rolled up. He is convinced that he was poisoned by his housemates. Patient states he just moved into his house 4 days ago. Patient at this time does not have any symptoms. The ROS documented in this emergency department record has been reviewed and confirmed by me. Those systems with pertinent positive or negative responses have been documented in the HPI. All other systems are other negative and/or noncontributory. - Related Data Previous Rx's Medication Instructions Recorded cloNIDine HCL [Catapres] 0.1 mg PO BID 30 Days #60 tab 03/01/18 Azithromycin [Zithromax] 250 mg PO DAILY 4 Days #4 tab 03/08/18 Allergies Allergy/AdvReac Type Severity Reaction Status Date / Time Penicillins Allergy Unknown Verified 03/08/18 19:13 Childhood Review of Systems ROS Statement: Those systems with pertinent positive or pertinent negative responses have been documented in the HPI. ROS Other: All systems not noted in ROS Statement are negative. Past Medical History Past Medical History: Unable to Obtain History of Any Multi-Drug Resistant Organisms: None Reported Past Surgical History: Unable to Obtain Past Anesthesia/Blood Transfusion Reactions: No Reported Reaction Past Psychological History: Unable to Obtain Smoking Status: Unknown if ever smoked Past Alcohol Use History: Occasional Past Drug Use History: Heroin, IV Drug Use General Exam - General Exam Comments Initial Comments: PHYSICAL EXAM: General Impression: Alert and oriented x3, not in acute distress HEENT: Normocephalic atraumatic, extra-ocular movements intact, pupils equal and reactive to light bilaterally, mucous membranes moist. Cardiovascular: Heart regular rate and rhythm, S1&S2 audible, no murmurs, rubs or gallops Chest: Lungs clear to auscultation bilaterally, no rhonchi, no wheeze, no rales Abdomen: Bowel sounds present, abdomen soft, non-tender, non-distended, no organomegaly Musculoskeletal: Pulses present and equal in all extremities, no peripheral edema Motor: Power 5/5 bilaterally, no focal deficits noted Neurological: CN II-XII grossly intact, no focal motor or sensory deficits noted Skin: Multiple skin tracks along the upper extremities. Psych: Normal affect and mood Course Vital Signs 03/08/18 03/08/18 18:04 18:30 Temperature 98.3 F Pulse Rate 87 96 Respiratory 18 20 Rate Blood Pressure 124/84 125/85 O2 Sat by Pulse 99 97 Oximetry Medical Decision Making - Medical Decision Making ED course: 27 yo male presents with concerns for toluene poisoning. Laboratory evaluation was obtained. Leukocytosis of 14.9 likely secondary to stress. Metabolic panel is unremarkable. Urinalysis is positive for urinary tract infection. Rapid urine drug screen positive for opiates, amphetamines, methamphetamines, cocaine and marijuana. Enforcement was called to apprehend the possible poisonous substance. Patient is notified that enforcement is aware of the report patient treated with azithromycin and ceftriaxone for STDs. Urine studies were tested for chlamydia, gonorrhea and trichomoniasis. Patient counseled on clean illicit drug abuse consumption. Given referral to primary care physician for outpatient medical care. At this point patient continues to be asymptomatic. Clear for discharge. She understandable and agreeable to disposition. Told to follow-up with provided primary care physician. Patient hemodynamically stable. Vital signs are stable. She did have some findings of pneumonia on his chest x-ray. Patient has been having mild cough however highly doubt pneumonia symptoms. Patient given Zithromax pack to start tomorrow. EKG interpretation: Ventricular rate 91, normal sinus rhythm, NM interval 1:30, QS 90, QTc 445. No NM prolongation, no QTC prolongation, no ST or T-wave changes noted. Overall, this EKG is unremarkable - Lab Data Result diagrams: 03/08/18 18:35 03/08/18 18:35 Lab Results 03/08/18 03/08/18 03/08/18 Range/Units 18:35 18:35 19:53 WBC 14.9 H (3.8-10.6) k/uL RBC 4.71 (4.30-5.90) m/uL Hgb 15.0 (13.0-17.5) gm/dL Hct 44.4 (39.0-53.0) % MCV 94.1 (80.0-100.0) fL MCH 31.9 (25.0-35.0) pg MCHC 33.9 (31.0-37.0) g/dL RDW 13.2 (11.5-15.5) % Plt Count 258 (150-450) k/uL Neutrophils % 81 % Lymphocytes % 13 % Monocytes % 4 % Eosinophils % 0 % Basophils % 0 % Neutrophils # 12.1 H (1.3-7.7) k/uL Lymphocytes # 2.0 (1.0-4.8) k/uL Monocytes # 0.6 (0-1.0) k/uL Eosinophils # 0.1 (0-0.7) k/uL Basophils # 0.0 (0-0.2) k/uL Sodium 139 (137-145) mmol/L Potassium 3.8 (3.5-5.1) mmol/L Chloride 103 (98-107) mmol/L Carbon Dioxide 27 (22-30) mmol/L Anion Gap 9 mmol/L BUN 19 (9-20) mg/dL Creatinine 0.96 (0.66-1.25) mg/dL Est GFR (CKD-EPI)AfAm >90 (>60 ml/min/1.73 sqM) Est GFR (CKD-EPI)NonAf >90 (>60 ml/min/1.73 sqM) Glucose 104 H (74-99) mg/dL Calcium 9.4 (8.4-10.2) mg/dL Total Bilirubin 0.7 (0.2-1.3) mg/dL AST 45 (17-59) U/L ALT 85 H (21-72) U/L Alkaline Phosphatase 118 (38-126) U/L Creatine Kinase 208 H (55-170) U/L Total Protein 7.4 (6.3-8.2) g/dL Albumin 4.2 (3.5-5.0) g/dL Urine Color Urine Appearance (Clear) Urine pH (5.0-8.0) Ur Specific Kite (1.001-1.035) Urine Protein (Negative) Urine Glucose (UA) (Negative) Urine Ketones (Negative) Urine Blood (Negative) Urine Nitrite (Negative) Urine Bilirubin (Negative) Urine Urobilinogen (<2.0) mg/dL Ur Leukocyte Esterase (Negative) Urine RBC (0-5) /hpf Urine WBC (0-5) /hpf Amorphous Sediment (None) /hpf Hyaline Casts (0-2) /lpf Urine Mucus (None) /hpf Salicylates <1.0 mg/dL Urine Opiates Screen (NotDetected) Ur Oxycodone Screen (NotDetected) Urine Methadone Screen (NotDetected) Ur Propoxyphene Screen (NotDetected) Acetaminophen <10.0 ug/mL Ur Barbiturates Screen (NotDetected) U Tricyclic Antidepress (NotDetected) Ur Phencyclidine Scrn (NotDetected) Ur Amphetamines Screen (NotDetected) U Methamphetamines Scrn (NotDetected) U Benzodiazepines Scrn (NotDetected) Urine Cocaine Screen (NotDetected) U Marijuana (THC) Screen (NotDetected) Serum Alcohol <10 mg/dL 03/08/18 Range/Units 20:00 WBC (3.8-10.6) k/uL RBC (4.30-5.90) m/uL Hgb (13.0-17.5) gm/dL Hct (39.0-53.0) % MCV (80.0-100.0) fL MCH (25.0-35.0) pg MCHC (31.0-37.0) g/dL RDW (11.5-15.5) % Plt Count (150-450) k/uL Neutrophils % % Lymphocytes % % Monocytes % % Eosinophils % % Basophils % % Neutrophils # (1.3-7.7) k/uL Lymphocytes # (1.0-4.8) k/uL Monocytes # (0-1.0) k/uL Eosinophils # (0-0.7) k/uL Basophils # (0-0.2) k/uL Sodium (137-145) mmol/L Potassium (3.5-5.1) mmol/L Chloride (98-107) mmol/L Carbon Dioxide (22-30) mmol/L Anion Gap mmol/L BUN (9-20) mg/dL Creatinine (0.66-1.25) mg/dL Est GFR (CKD-EPI)AfAm (>60 ml/min/1.73 sqM) Est GFR (CKD-EPI)NonAf (>60 ml/min/1.73 sqM) Glucose (74-99) mg/dL Calcium (8.4-10.2) mg/dL Total Bilirubin (0.2-1.3) mg/dL AST (17-59) U/L ALT (21-72) U/L Alkaline Phosphatase (38-126) U/L Creatine Kinase (55-170) U/L Total Protein (6.3-8.2) g/dL Albumin (3.5-5.0) g/dL Urine Color Yellow Urine Appearance Cloudy (Clear) Urine pH 5.5 (5.0-8.0) Ur Specific Kite 1.029 (1.001-1.035) Urine Protein 1+ H (Negative) Urine Glucose (UA) Negative (Negative) Urine Ketones 1+ H (Negative) Urine Blood Trace H (Negative) Urine Nitrite Negative (Negative) Urine Bilirubin Negative (Negative) Urine Urobilinogen 4.0 (<2.0) mg/dL Ur Leukocyte Esterase Trace H (Negative) Urine RBC 4 (0-5) /hpf Urine WBC 22 H (0-5) /hpf Amorphous Sediment Rare H (None) /hpf Hyaline Casts 15 H (0-2) /lpf Urine Mucus Many H (None) /hpf Salicylates mg/dL Urine Opiates Screen Detected H (NotDetected) Ur Oxycodone Screen Not Detected (NotDetected) Urine Methadone Screen Not Detected (NotDetected) Ur Propoxyphene Screen Not Detected (NotDetected) Acetaminophen ug/mL Ur Barbiturates Screen Not Detected (NotDetected) U Tricyclic Antidepress Not Detected (NotDetected) Ur Phencyclidine Scrn Not Detected (NotDetected) Ur Amphetamines Screen Detected H (NotDetected) U Methamphetamines Scrn Detected H (NotDetected) U Benzodiazepines Scrn Not Detected (NotDetected) Urine Cocaine Screen Detected H (NotDetected) U Marijuana (THC) Screen Detected H (NotDetected) Serum Alcohol mg/dL Disposition Clinical Impression: Poisoning Disposition: HOME SELF-CARE Condition: Good Prescriptions: Azithromycin [Zithromax] 250 mg PO DAILY 4 Days #4 tab Is patient prescribed a controlled substance at d/c from ED?: No Referrals: None,Stated [Primary Care Provider] - 1-2 days Tomás Gunter MD [REFERRING] - 1-2 days Time of Disposition: 20:39
[2018-03-08 18:40] VITALS: RESP 20
--- NOTE | 2018-03-08 18:41 | XR ---
EXAMINATION TYPE: XR chest 2V DATE OF EXAM: 03/08/2018 COMPARISON: 02/12/1718 HISTORY: Chest pain TECHNIQUE: Frontal and lateral views of the chest are obtained. FINDINGS: Heart and mediastinum are normal. There is some patchy pneumonia in the anterior basal seg ment left lower lobe and also the anterior right middle lobe. The other lung malin are clear. There is no pleural effusion. Bony thorax is intact. IMPRESSION: Bilateral pneumonia is new compared to old exam. Normal heart.
[2018-03-08 18:54] LABS: Basophils % (A) 0 %; Eosinophils # (A) 0.1 k/uL (0-0.7); Eosinophils % (A) 0 %; HCT 44.4 % (39.0-53.0); Lymphocytes % (A) 13 %; MCH 31.9 pg (25.0-35.0); MCHC 33.9 g/dL (31.0-37.0); MCV 94.1 fL (80.0-100.0); Mean Platelet Volume 6.7; Monocytes # (A) 0.6 k/uL (0-1.0); Monocytes % (A) 4 %; Neutrophils # (A) 12.1 k/uL (1.3-7.7); Neutrophils % (A) 81 %; Platelet Count 258 k/uL (150-450); RBC 4.71 m/uL (4.30-5.90); RDW 13.2 % (11.5-15.5); WBC 14.9 k/uL (3.8-10.6)
[2018-03-08 19:10] LABS: ALT 85 U/L (21-72); AST 45 U/L (17-59); Acetaminophen <10.0 ug/mL; Albumin 4.2 g/dL (3.5-5.0); Alcohol <10 mg/dL; Alkaline Phosphatase 118 U/L (38-126); Anion Gap 9 mmol/L; Blood Urea Nitrogen 19 mg/dL (9-20); Calcium 9.4 mg/dL (8.4-10.2); Carbon Dioxide 27 mmol/L (22-30); Chloride 103 mmol/L (98-107); Glucose 104 mg/dL (74-99); Potassium 3.8 mmol/L (3.5-5.1); Salicylate <1.0 mg/dL; Sodium 139 mmol/L (137-145); Total Bilirubin 0.7 mg/dL (0.2-1.3); Total Protein 7.4 g/dL (6.3-8.2)
[2018-03-08 20:26] LABS: Amorphous Sediment,Urine Rare /hpf; Amphetamine Screen,Urine Detected (NotDetected); Appearance,Urine Cloudy (Clear); Barbiturate Screen,Urine Not Detected (NotDetected); Benzodiazepines Screen,Urine Not Detected (NotDetected); Bilirubin,Urine Negative (Negative); Blood,Urine Trace (Negative); Cocaine Screen,Urine Detected (NotDetected); Color,Urine Yellow; Glucose,Urine (UA) Negative (Negative); Hyaline Casts,Urine 15 /lpf (0-2); Ketones,Urine 1+ (Negative); Leukocyte Esterase,Urine Trace (Negative); Methadone Screen, Urine Not Detected (NotDetected); Mucus,Urine Many /hpf; Nitrite,Urine Negative (Negative); Opiate Screen,Urine Detected (NotDetected); Oxycodone Screen, Urine Not Detected (NotDetected); PH, Urine 5.5 (5.0-8.0); Phencyclidine Screen,Urine Not Detected (NotDetected); Protein,Urine 1+ (Negative); RBC,Urine 4 /hpf (0-5); Specific Gravity,Urine 1.029 (1.001-1.035); Tricyclic Antidepressant,Urine Not Detected (NotDetected); Urn Cannabinoid Scrn Detected (NotDetected); WBC,Urine 22 /hpf (0-5)
[2018-03-08] MEDS ORDERED: cefTRIAXone 250 MG VIAL IM STA (20:30)
[2018-03-08] MEDS ORDERED: AZITHROMYCIN 500 MG TAB PO STA (20:31)
[2018-03-08 20:45] VITALS: BP 141/78; PULSE 106; TEMP 98.7
[2018-03-10 12:23] LABS: N. gonorrhoeae,PCR Negative (Neg,Equiv); Neisseria Source Urine
[2018-03-10 12:24] LABS: C. trachomatis,PCR Negative (Neg,Equiv); Chlamydia trachomatis Source Urine
== END 2018-03-08 21:00 | disposition home or self-care (01) ==
LOC: EC 17:43
DX: T52 Toxic effect of organic solvents (principal); R05 Cough; Z71.51 Drug abuse counseling and surveillance of drug abuser; Z88.0 Allergy status to penicillin
CPT/HCPCS: 51798; 36415; 93005; 80053; 82550; 85025; 81001; 87491; 87591; 80306; 83520 ×2; 71046; 99285; 96372; G0480; J0696; 80320